=== PATIENT | female | born 1960 | race Caucasian/White ===

== ENCOUNTER 2017-03-25 07:09 | Emergency (ER) | payer MEDICARE, MEDICAID ==
[~2017-03-25] VITALS: Ht 162.6 cm; Wt 128.1 kg
[~2017-03-25 07:09] MED LIST: ASPI-1265 PO; CYCL-394 PO; DIAZ-351 PO; FURO-150 PO; HYDR-569 PO; LEVO500T89 PO; LIDO700A22 TP; NAP220T PO; NORCO10T PO; POTA10TA36 PO; PRED20TA PO; SIMV10TA2 PO; SYN0.025T PO
[2017-03-25 07:41] LABS: BASOPHILS # (AUTO) 0.1 X10'3 (0-0.2); BASOPHILS % (AUTO) 0.6 % (0-1); EOSINOPHILS # (AUTO) 0.2 X10'3 (0-0.9); EOSINOPHILS % (AUTO) 2.1 % (0-6); HEMATOCRIT 48.1 % (35.0-45.0); LYMPHOCYTES # (AUTO) 5.2 X10'3 (1.1-4.8); LYMPHOCYTES % (AUTO) 47.6 % (21-51); MEAN CORPUSCULAR HEMOGLOBIN 29.6 PG (27.0-31.0); MEAN CORPUSCULAR HGB CONC 33.3 % (33.0-36.5); MEAN CORPUSCULAR VOLUME 88.8 FL (78-98); MEAN PLATELET VOLUME 8.5 FL (7.4-10.4); MONOCYTES # (AUTO) 0.7 X10'3 (0-0.9); MONOCYTES % (AUTO) 6.2 % (2-12); NEUTROPHILS # (AUTO) 4.7 X10'3 (1.8-7.7); NEUTROPHILS % (AUTO) 43.5 % (42-75); PLATELET COUNT 298 X10'3 (140-440); RED BLOOD COUNT 5.42 X10'6 (4.20-5.60); RED CELL DISTRIBUTION WIDTH 13.4 % (11.5-14.5); WHITE BLOOD COUNT 10.9 X10'3 (4.5-11.0)
[2017-03-25] MEDS ORDERED: cyclobenzaprine 10mg tablet PO ONE (07:55)
[2017-03-25] MEDS ORDERED: ketorolac trometh. 30mg/ml inj. IV ONE (07:55)
[2017-03-25 08:02] LABS: ALANINE AMINOTRANSFERASE 41 U/L (12-78); ALBUMIN/GLOBULIN RATIO 0.9 (1.1-1.5); ALKALINE PHOSPHATASE 109 IU/L (46-116); ANION GAP 10 (8-16); ASPARTATE AMINO TRANSFERASE 20 U/L (10-37); BILIRUBIN,TOTAL 0.4 MG/DL (0.1-1.0); BLOOD UREA NITROGEN 6 MG/DL (7-18); BUN/CREATININE RATIO 6.9 (6.6-38.0); CALCIUM 9.9 MG/DL (8.5-10.1); CHLORIDE 103 MMOL/L (99-107); CREATININE 0.87 MG/DL (0.40-0.90); GLUCOSE 133 MG/DL (70-104); POTASSIUM 4.2 MMOL/L (3.5-5.1); SODIUM 141 MMOL/L (135-145); TOTAL CARBON DIOXIDE 27.9 MMOL/L (24-32); TOTAL PROTEIN 8.3 G/DL (6.4-8.2); eGFR 68 ML/MIN
[2017-03-25 08:07] LABS: PARTIAL THROMBOPLASTIN TIME 32 SECONDS (22-32); PROTHROMBIN TIME 9.9 SECONDS (9.0-12.0)
[2017-03-25 08:50] LABS: CLARITY,URINE CLEAR (Clear); COLOR,URINE YELLOW (Yellow); GLUCOSE, URINE NEGATIVE (Neg); KETONES,URINE NEGATIVE (Neg); LEUKOCYTE ESTERASE ,URINE NEGATIVE (Neg); NITRITES, URINE NEGATIVE (Neg); OCCULT BLOOD,URINE NEGATIVE (Neg); PROTEIN,URINE NEGATIVE (Neg); UROBILINOGEN,URINE 0.2 E.U/dL (0.2-1.0)
[2017-03-25 08:56] LABS: UA COLLECTION TYPE CLN CATCH MIDSTREAM
[2017-03-25 09:33] VITALS: BP 127/99
== END 2017-03-25 09:30 | disposition home or self-care (01) ==
LOC: ER 07:10
DX: S29.012A Strain of muscle and tendon of back wall of thorax, initial encounter (principal); E78.00 Pure hypercholesterolemia, unspecified; J44.9 Chronic obstructive pulmonary disease, unspecified; I10 Essential (primary) hypertension; E66.01 Morbid (severe) obesity due to excess calories; E11.9 Type 2 diabetes mellitus without complications; G89.29 Other chronic pain; Z86.73 Personal history of transient ischemic attack (TIA), and cerebral infarction without residual deficits; Z90.49 Acquired absence of other specified parts of digestive tract; Z87.891 Personal history of nicotine dependence; Z60.2 Problems related to living alone; Z68.42 Body mass index [BMI] 45.0-49.9, adult; Z88.0 Allergy status to penicillin; Z88.6 Allergy status to analgesic agent; Z79.82 Long term (current) use of aspirin; Z79.899 Other long term (current) drug therapy; W19.XXXA Unspecified fall, initial encounter; Y93.89 Activity, other specified; Y92.89 Other specified places as the place of occurrence of the external cause; Y99.8 Other external cause status
CPT/HCPCS: 36415; 71045; 71046; 80053; 81003; 84484; 85025; 85610; 85730; 93005; 96374; 96375; 99285; J1885; J2270

== ENCOUNTER 2017-07-17 14:47 | Outpatient (CLI) | payer MEDICARE, MEDICAID | END 2017-07-17 15:45 | disposition home or self-care (01) | LOC: ORTHO 14:47 | PROVIDERS: ATTEND Nurse Practitioner Family | DX: S69.91XA Unspecified injury of right wrist, hand and finger(s), initial encounter (principal); F17.210 Nicotine dependence, cigarettes, uncomplicated; E11.9 Type 2 diabetes mellitus without complications; E78.00 Pure hypercholesterolemia, unspecified; G89.29 Other chronic pain; I10 Essential (primary) hypertension; J44.9 Chronic obstructive pulmonary disease, unspecified; Z86.73 Personal history of transient ischemic attack (TIA), and cerebral infarction without residual deficits; Z88.0 Allergy status to penicillin; Z88.8 Allergy status to other drugs, medicaments and biological substances; Z56.0 Unemployment, unspecified; X58.XXXA Exposure to other specified factors, initial encounter; Y93.89 Activity, other specified; Y92.89 Other specified places as the place of occurrence of the external cause; Y99.8 Other external cause status | CPT/HCPCS: 29075; 99213; A4590 ==

== ENCOUNTER 2017-07-31 14:09 | Outpatient (CLI) | payer MEDICARE, MEDICAID ==
[2017-07-31 14:23] VITALS: BP 146/78
== END 2017-07-31 15:18 | disposition home or self-care (01) ==
LOC: ORTHO 14:09
PROVIDERS: ATTEND Nurse Practitioner Family
DX: S62.024G Nondisplaced fracture of middle third of navicular [scaphoid] bone of right wrist, subsequent encounter for fracture with delayed healing (principal); J44.9 Chronic obstructive pulmonary disease, unspecified; I10 Essential (primary) hypertension; G89.29 Other chronic pain; E78.00 Pure hypercholesterolemia, unspecified; E11.9 Type 2 diabetes mellitus without complications; F17.200 Nicotine dependence, unspecified, uncomplicated; Z88.0 Allergy status to penicillin; Z86.73 Personal history of transient ischemic attack (TIA), and cerebral infarction without residual deficits; X58.XXXD Exposure to other specified factors, subsequent encounter
CPT/HCPCS: 73110; 99213; A4590

== ENCOUNTER 2017-08-21 15:08 | Outpatient (CLI) | payer MEDICARE, MEDICAID ==
[2017-08-21 15:22] VITALS: BP 129/95
== END 2017-08-21 15:50 | disposition home or self-care (01) ==
LOC: ORTHO 15:08
PROVIDERS: ATTEND Nurse Practitioner Family
DX: S62.001D Unspecified fracture of navicular [scaphoid] bone of right wrist, subsequent encounter for fracture with routine healing (principal); I10 Essential (primary) hypertension; E11.9 Type 2 diabetes mellitus without complications; E78.00 Pure hypercholesterolemia, unspecified; F17.210 Nicotine dependence, cigarettes, uncomplicated; J44.9 Chronic obstructive pulmonary disease, unspecified; F10.10 Alcohol abuse, uncomplicated; Z86.73 Personal history of transient ischemic attack (TIA), and cerebral infarction without residual deficits; Z88.0 Allergy status to penicillin; Z88.8 Allergy status to other drugs, medicaments and biological substances; X58.XXXD Exposure to other specified factors, subsequent encounter
CPT/HCPCS: 73110; 99213

== ENCOUNTER 2017-09-17 09:31 | Outpatient (CLI) | payer MEDICARE, MEDICAID | END 2017-09-17 10:32 | disposition home or self-care (01) | LOC: ORTHO 09:31 | PROVIDERS: ATTEND Nurse Practitioner Family | DX: S69.91XD Unspecified injury of right wrist, hand and finger(s), subsequent encounter (principal); X58.XXXD Exposure to other specified factors, subsequent encounter; Z56.0 Unemployment, unspecified; Z88.0 Allergy status to penicillin; E78.00 Pure hypercholesterolemia, unspecified; I10 Essential (primary) hypertension; J44.9 Chronic obstructive pulmonary disease, unspecified; E11.9 Type 2 diabetes mellitus without complications; G89.29 Other chronic pain | CPT/HCPCS: 73110; 99213 ==

== ENCOUNTER 2017-10-15 09:29 | Outpatient (CLI) | payer MEDICARE, MEDICAID ==
[2017-10-15 09:50] VITALS: BP 150/85
== END 2017-10-15 10:08 | disposition home or self-care (01) ==
LOC: ORTHO 09:29
PROVIDERS: ATTEND Nurse Practitioner Family
DX: S69.91XD Unspecified injury of right wrist, hand and finger(s), subsequent encounter (principal); F17.200 Nicotine dependence, unspecified, uncomplicated; E78.00 Pure hypercholesterolemia, unspecified; I10 Essential (primary) hypertension; J44.9 Chronic obstructive pulmonary disease, unspecified; E11.9 Type 2 diabetes mellitus without complications; Z56.0 Unemployment, unspecified; Z72.89 Other problems related to lifestyle; Z88.0 Allergy status to penicillin; Z88.8 Allergy status to other drugs, medicaments and biological substances; X58.XXXD Exposure to other specified factors, subsequent encounter
CPT/HCPCS: 73110; 99213

== ENCOUNTER 2018-07-10 06:19 | Day surgery (SDC) | payer MEDICARE, MEDICAID ==
[2018-07-03 12:05] LABS: BASOPHILS # (AUTO) 0.1 X10'3 (0-0.2); BASOPHILS % (AUTO) 0.9 % (0-1); EOSINOPHILS # (AUTO) 0.2 X10'3 (0-0.9); LYMPHOCYTES # (AUTO) 4.5 X10'3 (1.1-4.8); LYMPHOCYTES % (AUTO) 45.4 % (21-51); MEAN CORPUSCULAR HEMOGLOBIN 29.2 PG (27.0-31.0); MEAN CORPUSCULAR HGB CONC 33.3 g/dL (33.0-36.5); MEAN CORPUSCULAR VOLUME 87.6 FL (78-98); MEAN PLATELET VOLUME 8.9 FL (7.4-10.4); MONOCYTES # (AUTO) 0.7 X10'3 (0-0.9); MONOCYTES % (AUTO) 7.1 % (2-12); NEUTROPHILS # (AUTO) 4.4 X10'3 (1.8-7.7); NEUTROPHILS % (AUTO) 44.6 % (42-75); PRE OP HEMATOCRIT 43.7 % (35.0-45.0); PRE OP HEMOGLOBIN 14.6 g/dL (12.0-16.0); PRE OP PLATELET COUNT 285 X10'3 (140-440); RED BLOOD COUNT 4.99 X10'6 (4.20-5.60); RED CELL DISTRIBUTION WIDTH 12.9 % (11.5-14.5)
[2018-07-03 12:19] LABS: ALBUMIN 3.5 G/DL (3.4-5.0); ALBUMIN/GLOBULIN RATIO 0.9 (1.1-1.5); ALKALINE PHOSPHATASE 102 IU/L (46-116); BLOOD UREA NITROGEN 10 MG/DL (7-18); CALCIUM 9.4 MG/DL (8.5-10.1); CHLORIDE 104 MMOL/L (99-107); CREATININE 0.77 MG/DL (0.40-0.90); PRE OP ALT 39 U/L (30-65); PRE OP ANION GAP 9 (8-16); PRE OP AST 28 U/L (10-37); PRE OP BILIRUB, TOTAL 0.2 MG/DL (0.0-1.0); PRE OP GLUCOSE 115 MG/DL (70-104); PRE OP POTASSIUM 4.1 MMOL/L (3.4-5.1); PRE OP SODIUM 139 MMOL/L (135-145); TOTAL CARBON DIOXIDE 25.7 MMOL/L (24-32); TOTAL PROTEIN 7.2 G/DL (6.4-8.2); eGFR 78 ML/MIN
[~2018-07-10] VITALS: Ht 162.6 cm; Wt 121.0 kg
[~2018-07-10 06:19] MED LIST changes: -ASPI-1265 PO; +ATOR40TA PO; +ATR0.5NEB IH; -DIAZ-351 PO; +DULO-31 PO; -FURO-150 PO; -HYDR-569 PO; -LEVO500T89 PO; -LIDO700A22 TP; +LORA10TA7 PO; +METF500T PO; -POTA10TA36 PO; -PRED20TA PO; -SIMV10TA2 PO; +albuterol 2.5 MG/3 ML nebule NEB ONE; +clindamycin 600mg/D5W 50ml 50 ML IV ONE; +famotidine 20mg tablet PO ONE; +ringers solution, lacted 1,000 ML IV SCH
[2018-07-10] MEDS ORDERED: BUPIVAcaine/PF 2.5mg/ml (0.25%) 10ml vial ONE (06:43)
[2018-07-10 06:45] VITALS: BP 142/81
[2018-07-10] MEDS ORDERED: LIDOcaine 0.5% (5mg/ml) 50ml vial ONE (07:30)
[2018-07-10] MEDS ORDERED: ringers solution, lacted 1,000 ML IV SCH (07:58)
[2018-07-10] MEDS ORDERED: meperidine/PF 25mg/ml syringe IV PRN ×3 (08:00)
[2018-07-10] MEDS ORDERED: morphine 4 MG/ML inj SYRINge IV PRN ×2 (08:00)
[2018-07-10] MEDS ORDERED: ondansetron/PF 4mg/2ml inj IV PRN (08:00)
[2018-07-10] MEDS ORDERED: proCHLORperazine 10 MG/2 ml inj IV PRN (08:00)
[2018-07-10] MEDS ORDERED: fentaNYL/PF 50MCG/1 ML 2ML syringe ONE (08:43)
[2018-07-10] MEDS ORDERED: MIDAZolam 5mg/5ml vial ONE (08:43)
[2018-07-10 09:14] VITALS: BP 124/80
--- NOTE | 2018-07-10 09:14 | NUR ---
Received from OR via , accompanied by Anesthesiologist JAMEL and report given by Anesthesiolgist. AWAKE IN NO RESP DISTRESS SKIN WARM AND DRY LEFT HAND PINK GOOD CAP REFILL, NON CO PAIN, DSG DI, ICE TO WRIST.
[2018-07-10 09:24] VITALS: BP 128/79
[2018-07-10 09:34] VITALS: BP 122/75
[2018-07-10 09:44] VITALS: BP 128/82
--- NOTE | 2018-07-10 09:54 | NUR ---
AWAKE VS WNL, DSG DI, NO CO PAIN, FINGERS LEFT HAND WITH MOVEMENT WARM PINK GOOD CAP REFILL, TOLERATES LIQUIDS DISCH INSTR GIVEN TO PT AND HUBAND AND UNDERSTOOD. HAS NORCO AT HOME FOR PAIN,. ICE TO WRIST AND THUMB AREA. HOME
== END 2018-07-10 09:54 | disposition home or self-care (01) ==
LOC: PAS 06:19
PROVIDERS: ATTEND Orthopaedic Surgery Hand Surgery
DX: M65.4 Radial styloid tenosynovitis [de Quervain] (principal)
CPT/HCPCS: 25000; 36415; 80053; 82948; 85025; 93005; A6222; A6449; J2001; J2250; J3010; J3490; J7120

== ENCOUNTER 2019-02-03 16:26 | Emergency (ER) | payer MEDICARE, MEDICAID ==
[~2019-02-03] VITALS: Ht 162.6 cm; Wt 127.3 kg
[~2019-02-03 16:26] MED LIST changes: +ASPI-1265 PO; -ATOR40TA PO; +LEVO137T2 PO; +NICO-631 TD; -SYN0.025T PO; -albuterol 2.5 MG/3 ML nebule NEB ONE; -clindamycin 600mg/D5W 50ml 50 ML IV ONE; -famotidine 20mg tablet PO ONE; -ringers solution, lacted 1,000 ML IV SCH
[2019-02-03 16:47] VITALS: BP 164/87
[2019-02-03] MEDS ORDERED: HYDROcodone/acetaminophen 10/325mg tab PO ONE (18:25)
[2019-02-03] MEDS ORDERED: ondansetron 4mg rapidly disintigrating tab PO ONE (18:25)
--- NOTE | 2019-02-03 18:38 | NUR ---
pt does not want to take [place] for pain- she states she has taken norco 10 along with flexeril and states it is not effective.
[2019-02-03] MEDS ORDERED: morphine 4 MG/ML inj SYRINge IM ONE (18:45)
== END 2019-02-03 19:20 | disposition home or self-care (01) ==
LOC: ER 16:27
DX: M25.552 Pain in left hip (principal); E66.01 Morbid (severe) obesity due to excess calories; E78.00 Pure hypercholesterolemia, unspecified; I10 Essential (primary) hypertension; J44.9 Chronic obstructive pulmonary disease, unspecified; E11.9 Type 2 diabetes mellitus without complications; G89.29 Other chronic pain; F17.200 Nicotine dependence, unspecified, uncomplicated; Z90.49 Acquired absence of other specified parts of digestive tract; Z88.0 Allergy status to penicillin; Z88.8 Allergy status to other drugs, medicaments and biological substances; Z79.899 Other long term (current) drug therapy; W18.30XA Fall on same level, unspecified, initial encounter; Y93.89 Activity, other specified; Y92.89 Other specified places as the place of occurrence of the external cause; Y99.9 Unspecified external cause status
CPT/HCPCS: 73502; 96372; 99284; J2270

== ENCOUNTER 2019-05-26 21:10 | Inpatient (IN) | payer MEDICARE, MEDICAID ==
[~2019-05-26] VITALS: Ht 162.6 cm; Wt 127.3 kg
[2019-05-26] MEDS ORDERED: ipratropium/albuterol 3ml nebule NEB ONE (21:20)
[2019-05-26] MEDS ORDERED: normal saline 1000ML IV soln IVB ONE (21:20)
[2019-05-26] MEDS ORDERED: methylPREDNISolone sod succ 125mg/2ml vial IV ONE (21:20)
[2019-05-26] MEDS ORDERED: LORazepam 2 mg/ml vial IV ONE (21:20)
[2019-05-26] MEDS ORDERED: albuterol 2.5 MG/3 ML nebule CONTNEB PRN (21:20)
[2019-05-26 21:37] LABS: BASOPHILS # (AUTO) 0.2 X10'3 (0-0.2); BASOPHILS % (AUTO) 1.1 % (0-1); EOSINOPHILS # (AUTO) 0.3 X10'3 (0-0.9); HEMOGLOBIN 14.2 g/dl (12.0-16.0); MEAN PLATELET VOLUME 8.8 FL (7.4-10.4); NEUTROPHILS # (AUTO) 7.4 X10'3 (1.8-7.7); RED CELL DISTRIBUTION WIDTH 13.3 % (11.5-14.5); WHITE BLOOD COUNT 17.2 X10'3 (4.5-11.0)
[2019-05-26 21:39] LABS: EOSINOPHILS % (AUTO) 1.6 % (0-6); HEMATOCRIT 41.3 % (35.0-45.0); LYMPHOCYTES # (AUTO) 8.2 X10'3 (1.1-4.8); LYMPHOCYTES % (AUTO) 47.8 % (21-51); MEAN CORPUSCULAR HEMOGLOBIN 30.1 PG (27.0-31.0); MEAN CORPUSCULAR HGB CONC 34.3 g/dL (33.0-36.5); MEAN CORPUSCULAR VOLUME 87.8 FL (78-98); MONOCYTES # (AUTO) 1.1 X10'3 (0-0.9); MONOCYTES % (AUTO) 6.3 % (2-12); NEUTROPHILS % (AUTO) 43.2 % (42-75); PLATELET COUNT 309 X10'3 (140-440); RED BLOOD COUNT 4.71 X10'6 (4.20-5.60)
[2019-05-26 21:49] LABS: PARTIAL THROMBOPLASTIN TIME 32 SECONDS (22-32)
[2019-05-26 21:51] LABS: ALANINE AMINOTRANSFERASE 48 U/L (12-78); ALBUMIN 3.6 G/DL (3.4-5.0); ALBUMIN/GLOBULIN RATIO 0.9 (1.1-1.5); ALKALINE PHOSPHATASE 92 IU/L (46-116); ANION GAP 9 (8-16); ASPARTATE AMINO TRANSFERASE 25 U/L (10-37); BILIRUBIN,TOTAL 0.2 MG/DL (0.1-1.0); BLOOD UREA NITROGEN 11 MG/DL (7-18); BUN/CREATININE RATIO 10.9 (6.6-38.0); CALCIUM 9.2 MG/DL (8.5-10.1); CHLORIDE 104 MMOL/L (99-107); CREATININE 1.01 MG/DL (0.40-0.90); GLUCOSE 156 MG/DL (70-104); POTASSIUM 3.8 MMOL/L (3.5-5.1); SODIUM 139 MMOL/L (135-145); TOTAL CARBON DIOXIDE 25.6 MMOL/L (24-32); TOTAL PROTEIN 7.6 G/DL (6.4-8.2); eGFR 56 ML/MIN
[2019-05-26 22:03] LABS: PLATELET ESTIMATE NORMAL; TOTAL CELLS COUNTED 100
--- NOTE | 2019-05-26 22:53 | NUR ---
RR 24 AND SATS ON 1 LITER NC 95%. 1 HR SVN JUST FINISHED AND PT REPORTS IMPROVEMENT. HR 118 , OTHERWISE VSS. PT IS POLITE AND COOPERATIVE.
[2019-05-26] MEDS ORDERED: ATOR20TA66 PO (23:01)
[2019-05-26] MEDS ORDERED: azithromycin/NS 500mg/250ml 250 ML IV ONE (23:45)
[2019-05-27] MEDS ORDERED: magnesium 4gm in 100ml NS 100 ML IV PRN
[2019-05-27] MEDS ORDERED: potassium Cl 20 mEq SR tablet PO PRN ×2
[2019-05-27] MEDS ORDERED: mag hydrox/Alum hydrox/simeth 30ml oral suspension PO PRN
[2019-05-27] MEDS ORDERED: potassium CL 10mEq/100ml bag 100 ML IV PRN ×2
[2019-05-27] MEDS ORDERED: ondansetron/PF 4mg/2ml inj IV PRN
[2019-05-27] MEDS ORDERED: magnesium hydroxide 30ml (MOM) UD suspension PO PRN
[2019-05-27] MEDS ORDERED: acetaminophen 325mg tablet PO PRN
[2019-05-27] MEDS ORDERED: magnesium 2GM in 50ml NS 50 ML IV PRN
[2019-05-27] MEDS ORDERED: magnesium Cl slow-release 64mg tablet PO PRN
[2019-05-27] MEDS ORDERED: bisacodyl 10mg suppository rectal RC PRN
[2019-05-27] MEDS ORDERED: HYDROcodone/acetaminophen 5mg/325mg tablet PO PRN
[2019-05-27] MEDS ORDERED: ipratropium/albuterol 3ml nebule NEB PRN (00:15)
--- NOTE | 2019-05-27 00:17 | NUR ---
dr young at bedside for admission. Pt awaiting ipa.
[2019-05-27] MEDS ORDERED: diphenhydrAMINE 50 mg/ml inj IV ONE (00:20)
--- NOTE | 2019-05-27 00:42 | NUR ---
Pt abs to ambluate to BR. Pt with increasing sob while ambulating. Placed in WC to return to room.
[2019-05-27] MEDS: K and/or MAG REPLACEMENT MC SCH ×2 (01:31→19:58)
[2019-05-27 01:56] VITALS: BP 158/86
--- NOTE | 2019-05-27 03:53 | NUR ---
Arrived to Ortho/Neuro @0155 on [facility]. Patient is able to ambulate OOB but is SOB on exertion. A&Ox4. Vital signs: RR24 on 97% 1L NC. BP 153/68, HR 120, Temperature 97.8F Patient was oriented to the room and educated on MRSA swab. Questions were answered and encouraged. Will continue to monitor.
[2019-05-27 06:00] VITALS: BP 120/63
--- NOTE | 2019-05-27 06:10 | NUR ---
Problems reprioritized. Patient report given, questions answered & plan of care reviewed with MAXI Rodriguez.
--- NOTE | 2019-05-27 06:25 | NUR ---
Patient in room ORTHO 4010. I have received report from SHANEL GERMAN and had the opportunity to ask questions and assume patient care.
--- NOTE | 2019-05-27 07:09 | NUR ---
PAGER ID: [phone] MESSAGE: AZEEM [phone] RE: FAVIOLA [id number] MED REC NEED ADDRESSED WHEN YOU HAVE TIME PLEASE.
[2019-05-27] MEDS: docusate sod 100mg capsule PO SCH ×2 (07:30→20:00)
[2019-05-27] MEDS: enoxaparin 40mg/0.4ml syringe SQ SCH (07:31)
[2019-05-27] MEDS ORDERED: predniSONE 20 mg tablet PO SCH (08:00)
[2019-05-27] MEDS ORDERED: ASPI-1130 PO (08:40)
[2019-05-27] MEDS ORDERED: LORA-660 PO (08:41)
[2019-05-27] MEDS ORDERED: pneumococcal 23-VAL P-sac vacc 25 mcg/0.5ml vial IMVAC ONE (10:00)
[2019-05-27] MEDS ORDERED: FLU VACC QS2019-20 36MOS UP/PF 60 MCG/0.5 ML SYRINGE IMVAC ONE (10:00)
[2019-05-27 10:04] VITALS: BP 142/75
[2019-05-27] MEDS ORDERED: propranolol 10mg tablet PO ONE (10:10)
[2019-05-27] MEDS ORDERED: cyclobenzaprine 10mg tablet PO PRN (10:10)
[2019-05-27] MEDS ORDERED: loratadine 10mg tablet PO PRN (10:17)
[2019-05-27] MEDS: levoFLOXACIN-Levaquin 750MG/D5 150 ML IV SCH (10:59)
[2019-05-27] MEDS: ipratropium/albuterol 3ml nebule NEB SCH ×4 (11:02→23:18)
[2019-05-27] MEDS: levoTHYROXINE 112mcg tablet PO SCH (11:02)
[2019-05-27] MEDS: levoTHYROXINE 25mcg tablet PO SCH (11:02)
[2019-05-27] MEDS ORDERED: insulin Lispro (HumaLOG) vial - multi-dose SQ SCH (12:05)
[2019-05-27] MEDS ORDERED: dextrose 50%-water 50ml dispensing syringe IV PRN ×2 (12:05)
[2019-05-27] MEDS ORDERED: glucagon, human recombinant 1mg kit SUBCUT PRN (12:05)
[2019-05-27] MEDS ORDERED: dextrose ORAL solution 15 GM/59 ML bottle PO PRN ×2 (12:05)
[2019-05-27] MEDS: methylPREDNISolone sod succ 125mg/2ml vial IV SCH ×2 (14:02→20:07)
--- NOTE | 2019-05-27 14:33 | NUR ---
DM Consult: A1C 7.2. Pt seen by DARLYN for written/verbal DM ed w/ RD contact information provided. Addendum: 05/27/19 at [address] Amended: Links added.
--- NOTE | 2019-05-27 17:31 | NUR ---
Student documentation: I have reviewed and agree with all interventions, assessments performed and documented by ALLISON SCHNEIDER. Student Medication Administration: For this medication-pass time frame, all medication were reviewed, dispensed, administered and documented per hospital policy by ALLISON SCHNEIDER.
[2019-05-27 18:00] VITALS: BP 134/80
--- NOTE | 2019-05-27 18:14 | NUR ---
Problems reprioritized. Patient report given, questions answered & plan of care reviewed with NAT GERMAN.
[2019-05-27] MEDS: metFORMIN 500mg tablet PO SCH (20:06)
[2019-05-27] MEDS: duloxetine 30mg CAPSULE.DR PO SCH (20:06)
[2019-05-27] MEDS: propranolol 10mg tablet PO SCH (20:06)
[2019-05-27] MEDS ORDERED: atorvastatin 20mg tablet PO SCH (21:00)
[2019-05-27] MEDS ORDERED: insulin glargine (Lantus) pen - multi-dose SQ SCH (21:00)
[2019-05-27 22:00] VITALS: BP 132/68
[2019-05-28] MEDS: methylPREDNISolone sod succ 125mg/2ml vial IV SCH ×3 (02:30→08:23)
[2019-05-28] MEDS: ipratropium/albuterol 3ml nebule NEB SCH ×3 (02:54→11:00)
[2019-05-28 06:00] VITALS: BP 160/82
--- NOTE | 2019-05-28 06:29 | NUR ---
reported to days. noted pt anticipates discharge this am.
--- NOTE | 2019-05-28 06:45 | NUR ---
Patient in room ORTHO 4010. I have received report from NAT GERMAN and had the opportunity to ask questions and assume patient care.
[2019-05-28 06:50] LABS: BASOPHILS % (AUTO) 0.2 % (0-1); EOSINOPHILS % (AUTO) 0 % (0-6); HEMATOCRIT 40.9 % (35.0-45.0); HEMOGLOBIN 13.7 g/dl (12.0-16.0); LYMPHOCYTES # (AUTO) 2.5 X10'3 (1.1-4.8); LYMPHOCYTES % (AUTO) 16.6 % (21-51); MEAN CORPUSCULAR HEMOGLOBIN 29.6 PG (27.0-31.0); MEAN CORPUSCULAR HGB CONC 33.6 g/dL (33.0-36.5); MEAN CORPUSCULAR VOLUME 88.3 FL (78-98); MEAN PLATELET VOLUME 8.8 FL (7.4-10.4); MONOCYTES # (AUTO) 0.4 X10'3 (0-0.9); MONOCYTES % (AUTO) 2.8 % (2-12); NEUTROPHILS # (AUTO) 12.2 X10'3 (1.8-7.7); NEUTROPHILS % (AUTO) 80.4 % (42-75); PLATELET COUNT 316 X10'3 (140-440); RED BLOOD COUNT 4.63 X10'6 (4.20-5.60); RED CELL DISTRIBUTION WIDTH 13.4 % (11.5-14.5); WHITE BLOOD COUNT 15.1 X10'3 (4.5-11.0)
[2019-05-28 07:10] LABS: ALANINE AMINOTRANSFERASE 39 U/L (12-78); ALBUMIN 3.4 G/DL (3.4-5.0); ALBUMIN/GLOBULIN RATIO 0.9 (1.1-1.5); ALKALINE PHOSPHATASE 83 IU/L (46-116); ANION GAP 7 (8-16); ASPARTATE AMINO TRANSFERASE 14 U/L (10-37); BILIRUBIN,TOTAL 0.2 MG/DL (0.1-1.0); BLOOD UREA NITROGEN 13 MG/DL (7-18); BUN/CREATININE RATIO 13.4 (6.6-38.0); CALCIUM 9.1 MG/DL (8.5-10.1); CHLORIDE 103 MMOL/L (99-107); CREATININE 0.97 MG/DL (0.40-0.90); GLUCOSE 224 MG/DL (70-104); MAGNESIUM 1.7 MG/DL (1.5-2.4); PHOSPHORUS 3.6 MG/DL (2.3-4.5); POTASSIUM 4.2 MMOL/L (3.5-5.1); SODIUM 137 MMOL/L (135-145); TOTAL CARBON DIOXIDE 26.8 MMOL/L (24-32); TOTAL PROTEIN 7.4 G/DL (6.4-8.2); eGFR 59 ML/MIN
[2019-05-28] MEDS: docusate sod 100mg capsule PO SCH (08:00)
[2019-05-28] MEDS ORDERED: aspirin 81mg tablet.DR PO SCH (08:00)
[2019-05-28] MEDS: levoFLOXACIN-Levaquin 750MG/D5 150 ML IV SCH ×2 (08:00→08:22)
[2019-05-28] MEDS: K and/or MAG REPLACEMENT MC SCH (08:00)
[2019-05-28] MEDS: levoTHYROXINE 112mcg tablet PO SCH (08:22)
[2019-05-28] MEDS: levoTHYROXINE 25mcg tablet PO SCH (08:22)
[2019-05-28] MEDS: metFORMIN 500mg tablet PO SCH (08:23)
[2019-05-28] MEDS: duloxetine 30mg CAPSULE.DR PO SCH (08:23)
[2019-05-28] MEDS: propranolol 10mg tablet PO SCH (08:24)
[2019-05-28] MEDS: enoxaparin 40mg/0.4ml syringe SQ SCH (08:24)
[2019-05-28 10:00] VITALS: BP 138/91
[2019-05-28] MEDS ORDERED: FURO-150 PO (10:06)
--- NOTE | 2019-05-31 10:35 | NUR ---
case management DC follow up: spoke w/pt via telephone: doing fine. Saw PCP this morning 05/31/2019, has follow up w/specialist 07/05/2019. Will call PCP back to inquire about portable O2 when going out. has concentrator at home, no Rx for O2 at this time. pt verbalizes will follow up if need to. verbalizes understanding of meds/why prescribed, no ase r/t polypharmacy. Denies cp, general acute pain, SOB at rest, resp distress, NV, dizziness. understands s/s what would warrant 9-/ER visit for evaluation. needs met, questions answered at DC. No further questions at this time.
== END 2019-05-28 11:31 | disposition home or self-care (01) | DRG 189 ==
LOC: ER 21:14 → ED HOLD 05-27 → EDBEDREQ 05-27 01:04 → ORTHO 4S 05-27 01:55 → CMPBEDREQ 05-27 02:57
PROVIDERS: ADMIT Family Medicine; ATTEND Family Medicine
DX: J96.00 Acute respiratory failure, unspecified whether with hypoxia or hypercapnia (principal); J44.1 Chronic obstructive pulmonary disease with (acute) exacerbation; Z68.42 Body mass index [BMI] 45.0-49.9, adult; F17.210 Nicotine dependence, cigarettes, uncomplicated; I27.81 Cor pulmonale (chronic); E78.5 Hyperlipidemia, unspecified; E66.01 Morbid (severe) obesity due to excess calories; E11.9 Type 2 diabetes mellitus without complications; E03.9 Hypothyroidism, unspecified; G89.29 Other chronic pain
CPT/HCPCS: 36415; 71045; 80053; 82948; 83036; 83735; 83880; 84100; 84145; 84484; 85025; 85610; 85730; 87081; 93005; 94640; 94668; 94760; 96374; 96375; 97116; 97162; 97530; 99285; G0378; J0456; J1200; J1650; J1815; J1956; J2060; J2930; J7030; J7512; Q2037

== ENCOUNTER 2019-10-30 11:01 | Emergency (ER) | payer MEDICARE, MEDICAID ==
[~2019-10-30] VITALS: Ht 162.6 cm; Wt 118.2 kg
[~2019-10-30 11:01] MED LIST changes: -ASPI-1265 PO; +ASPI-1397 PO; +ATOR20TA66 PO; -ATR0.5NEB IH; +FURO-150 PO; +LORA-660 PO; -LORA10TA7 PO; -NAP220T PO; -NICO-631 TD
[2019-10-30 11:21] VITALS: BP 151/95
== END 2019-10-30 12:24 | disposition home or self-care (01) ==
LOC: ER 11:02
DX: S93.401A Sprain of unspecified ligament of right ankle, initial encounter (principal); M79.671 Pain in right foot; E78.00 Pure hypercholesterolemia, unspecified; I10 Essential (primary) hypertension; J44.9 Chronic obstructive pulmonary disease, unspecified; E11.9 Type 2 diabetes mellitus without complications; G89.29 Other chronic pain; Z86.73 Personal history of transient ischemic attack (TIA), and cerebral infarction without residual deficits; Z90.49 Acquired absence of other specified parts of digestive tract; Z88.0 Allergy status to penicillin; Z88.8 Allergy status to other drugs, medicaments and biological substances; Z79.82 Long term (current) use of aspirin; Z79.899 Other long term (current) drug therapy; W16.92XA Jumping or diving into unspecified water causing other injury, initial encounter; Y93.89 Activity, other specified; Y92.89 Other specified places as the place of occurrence of the external cause; Y99.8 Other external cause status
CPT/HCPCS: 73610; 73630; 99284

== ENCOUNTER 2020-05-25 13:59 | Emergency (ER) | payer MEDICARE, MEDICAID ==
[~2020-05-25] VITALS: Ht 162.6 cm; Wt 125.9 kg
[~2020-05-25 13:59] MED LIST changes: +LORA-657 PO; -LORA-660 PO
--- NOTE | 2020-05-25 15:25 | NUR ---
PATIENT IS ON ELIQUIS: STARTED 2 WEEKS AGO DUE TO AFIB: GETTING WORK UP TO HAVE RIGHT KNEE REPLACED. PATIENT FELL 3 DAYS AGO INTO WALKER: C/O OF LEFT LOWER BACK INTO BUTTOCK PAST KNEE PAIN "FEELS LIKE STABBING BUTT IN MIDDLE" PAIN INCREASES WITH ADDUCTION OR ABDUCTION OF LEFT LEG PATIENT DOES NOT HAVE ANY BRUISES OR DEFORMITIES NOTED TO BACK, BUTTOCKS OR LOWER LEGS LEGS DO APPEAR MOTTLED
[2020-05-25] MEDS ORDERED: ondansetron 4mg rapidly disintigrating tab PO ONE (15:45)
[2020-05-25] MEDS ORDERED: HYDROcodone/acetaminophen 5mg/325mg tablet PO ONE (15:45)
[2020-05-25 16:35] LABS: BASOPHILS # (AUTO) 0.1 X10'3 (0-0.2); BASOPHILS % (AUTO) 0.6 % (0-1); EOSINOPHILS # (AUTO) 0.2 X10'3 (0-0.9); EOSINOPHILS % (AUTO) 1.7 % (0-6); HEMATOCRIT 44.4 % (35.0-45.0); HEMOGLOBIN 14.8 g/dl (12.0-16.0); LYMPHOCYTES # (AUTO) 5.9 X10'3 (1.1-4.8); LYMPHOCYTES % (AUTO) 46.3 % (21-51); MEAN CORPUSCULAR HEMOGLOBIN 28.7 PG (27.0-31.0); MEAN CORPUSCULAR HGB CONC 33.4 g/dL (33.0-36.5); MEAN CORPUSCULAR VOLUME 85.9 FL (78-98); MEAN PLATELET VOLUME 8.4 FL (7.4-10.4); MONOCYTES # (AUTO) 1.2 X10'3 (0-0.9); MONOCYTES % (AUTO) 9.4 % (2-12); NEUTROPHILS # (AUTO) 5.4 X10'3 (1.8-7.7); PLATELET COUNT 286 X10'3 (140-440); RED BLOOD COUNT 5.17 X10'6 (4.20-5.60); RED CELL DISTRIBUTION WIDTH 13.1 % (11.5-14.5); WHITE BLOOD COUNT 12.8 X10'3 (4.5-11.0)
[2020-05-25 16:48] LABS: ALANINE AMINOTRANSFERASE 37 U/L (12-78); ALBUMIN 3.5 G/DL (3.4-5.0); ALBUMIN/GLOBULIN RATIO 0.9 (1.1-1.5); ALKALINE PHOSPHATASE 93 IU/L (46-116); ANION GAP 11 (8-16); ASPARTATE AMINO TRANSFERASE 20 U/L (10-37); BILIRUBIN,TOTAL 0.4 MG/DL (0.1-1.0); BLOOD UREA NITROGEN 10 MG/DL (7-18); BUN/CREATININE RATIO 14.1 (6.6-38.0); CALCIUM 9.1 MG/DL (8.5-10.1); CHLORIDE 101 MMOL/L (99-107); CREATININE 0.71 MG/DL (0.40-0.90); GLUCOSE 146 MG/DL (70-104); SODIUM 136 MMOL/L (135-145); TOTAL CARBON DIOXIDE 23.8 MMOL/L (24-32); TOTAL PROTEIN 7.6 G/DL (6.4-8.2); eGFR 85 ML/MIN
[2020-05-25] MEDS ORDERED: iohexol 300mg/ml 100ml inj. ONE (16:51)
--- NOTE | 2020-05-25 16:55 | NUR ---
to ct scan via wc
[2020-05-25] MEDS ORDERED: MESSAGE TO NURSING PO SCH (17:00)
[2020-05-25] MEDS ORDERED: CYCL-1 PO (17:24)
[2020-05-25] MEDS ORDERED: ONDA4TAB6 PO (17:36)
[2020-05-25] MEDS ORDERED: HYDR-3965 PO (17:36)
[2020-05-25] MEDS ORDERED: morphine 4 MG/ML inj SYRINge IV ONE (17:55)
[2020-05-25] MEDS ORDERED: ondansetron/PF 4mg/2ml inj IV ONE (17:55)
[2020-05-25 18:11] VITALS: BP 111/78
--- NOTE | 2020-05-25 18:14 | NUR ---
PER PATTIE LYONS, WE DO NOT HAVE A TLSO BRACE LARGE ENOUGH TO FIT PATIENT
== END 2020-05-25 18:13 | disposition home or self-care (01) ==
LOC: ER 14:02
DX: S32.030A Wedge compression fracture of third lumbar vertebra, initial encounter for closed fracture (principal); S82.832A Other fracture of upper and lower end of left fibula, initial encounter for closed fracture; M54.42 Lumbago with sciatica, left side; M25.552 Pain in left hip; M25.572 Pain in left ankle and joints of left foot; E78.00 Pure hypercholesterolemia, unspecified; I10 Essential (primary) hypertension; J44.9 Chronic obstructive pulmonary disease, unspecified; E11.9 Type 2 diabetes mellitus without complications; G89.29 Other chronic pain; Z86.73 Personal history of transient ischemic attack (TIA), and cerebral infarction without residual deficits; Z90.49 Acquired absence of other specified parts of digestive tract; Z88.0 Allergy status to penicillin; Z88.8 Allergy status to other drugs, medicaments and biological substances; Z79.82 Long term (current) use of aspirin; Z79.899 Other long term (current) drug therapy; W18.39XA Other fall on same level, initial encounter; Y93.89 Activity, other specified; Y92.89 Other specified places as the place of occurrence of the external cause; Y99.8 Other external cause status
CPT/HCPCS: 36415; 72131; 73610; 74177; 80053; 85025; 96374; 96375; 99285; J2270; J2405; Q9967; 99283

== ENCOUNTER 2020-06-29 05:53 | Day surgery (SDC) | payer MEDICARE, MEDICAID ==
[2020-06-28 12:15] LABS: BASOPHILS # (AUTO) 0.1 X10'3 (0-0.2); BASOPHILS % (AUTO) 1.2 % (0-1); EOSINOPHILS # (AUTO) 0.3 X10'3 (0-0.9); EOSINOPHILS % (AUTO) 2.4 % (0-6); HEMATOCRIT 43.6 % (35.0-45.0); HEMOGLOBIN 14.3 g/dl (12.0-16.0); LYMPHOCYTES # (AUTO) 4.3 X10'3 (1.1-4.8); MEAN CORPUSCULAR HEMOGLOBIN 29.2 PG (27.0-31.0); MEAN CORPUSCULAR HGB CONC 32.9 g/dL (33.0-36.5); MEAN CORPUSCULAR VOLUME 88.7 FL (78-98); MEAN PLATELET VOLUME 8.7 FL (7.4-10.4); MONOCYTES # (AUTO) 0.8 X10'3 (0-0.9); MONOCYTES % (AUTO) 7.3 % (2-12); NEUTROPHILS # (AUTO) 5.8 X10'3 (1.8-7.7); NEUTROPHILS % (AUTO) 51.1 % (42-75); PLATELET COUNT 296 X10'3 (140-440); RED BLOOD COUNT 4.92 X10'6 (4.20-5.60); RED CELL DISTRIBUTION WIDTH 13.4 % (11.5-14.5); WHITE BLOOD COUNT 11.4 X10'3 (4.5-11.0)
[2020-06-28 12:32] LABS: ALBUMIN 3.5 G/DL (3.4-5.0); ANION GAP 12 (8-16); BLOOD UREA NITROGEN 13 MG/DL (7-18); BUN/CREATININE RATIO 14.1 (6.6-38.0); CALCIUM 9.1 MG/DL (8.5-10.1); CHLORIDE 105 MMOL/L (99-107); CREATININE 0.92 MG/DL (0.40-0.90); GLUCOSE 184 MG/DL (70-104); POTASSIUM 4.2 MMOL/L (3.5-5.1); SODIUM 141 MMOL/L (135-145); TOTAL CARBON DIOXIDE 24.3 MMOL/L (24-32); eGFR 63 ML/MIN
[2020-06-28 12:33] LABS: PARTIAL THROMBOPLASTIN TIME 30 SECONDS (22-32)
[~2020-06-29] VITALS: Ht 162.6 cm; Wt 130.2 kg
[2020-06-29] VITALS (12 sets, daily range): BP systolic 118–156; BP diastolic 64–88
[~2020-06-29 05:53] MED LIST changes: +CYCL-1 PO; +ONDA4TAB6 PO
[2020-06-29] MEDS ORDERED: normal saline 1,000 ML IV SCH (06:20)
[2020-06-29] MEDS ORDERED: LORazepam 0.5 MG tablet PO PRN (06:20)
[2020-06-29] MEDS ORDERED: diphenhydrAMINE 25mg capsule PO PRN (06:20)
[2020-06-29] MEDS ORDERED: GLYB5TAB7 PO (07:42)
[2020-06-29] MEDS ORDERED: DULO-31 PO (07:43)
[2020-06-29] MEDS ORDERED: verapamil 2.5 mg/ml inj IV ONE (07:45)
[2020-06-29] MEDS ORDERED: ATRNS NS (07:45)
[2020-06-29] MEDS ORDERED: iohexol 350 MG/ML 50ML vial IV ONE ×2 (07:46→09:42)
[2020-06-29] MEDS ORDERED: iohexol 350MG/ML 100ml bottle IV ONE ×2 (07:46→09:10)
[2020-06-29] MEDS ORDERED: LIDOcaine 1% (10mg/ml)w/preservative injection 20ml MDV ONE (07:46)
[2020-06-29] MEDS ORDERED: fentaNYL/PF 50MCG/1 ML 2ML syringe ONE (07:46)
[2020-06-29] MEDS ORDERED: nitroGLYCERIN-Tridil 50MG/D5W 250 ML IV ONE (07:46)
[2020-06-29] MEDS ORDERED: midazolam 1 mg/ML 2ml injection ONE (07:46)
[2020-06-29] MEDS ORDERED: LEVO137T2 PO (07:47)
[2020-06-29] MEDS ORDERED: heparin 1,000unit/ml 10ml vial 10 ML ONE (07:47)
[2020-06-29] MEDS ORDERED: OMEP40CA13 PO (07:49)
[2020-06-29] MEDS ORDERED: CYCL-394 PO (07:50)
[2020-06-29] MEDS ORDERED: DAPA10TA PO (07:51)
[2020-06-29] MEDS ORDERED: METF500T PO (07:52)
[2020-06-29] MEDS ORDERED: APIX5TAB3 PO (08:32)
[2020-06-29] MEDS ORDERED: heparin 25,000 UNIT/250ml bag 250 ML IV ONE (09:19)
[2020-06-29] MEDS ORDERED: clopidogrel 300mg tablet ONE (09:50)
[2020-06-29] MEDS ORDERED: HYDROcodone/acetaminophen 5mg/325mg tablet PO PRN (10:30)
[2020-06-29] MEDS ORDERED: HYDROcodone/acetaminophen 10/325mg tab PO PRN (10:30)
[2020-06-29] MEDS ORDERED: normal saline 1000ml 1,000 ML IV SCH (10:30)
[2020-06-29] MEDS ORDERED: pneumococcal 23-VAL P-sac vacc 25 mcg/0.5ml vial IMVAC ONE (15:20)
== END 2020-06-29 17:00 | disposition home or self-care (01) ==
LOC: SSTAY O 05:53
PROVIDERS: ATTEND Internal Medicine Cardiovascular Disease
DX: R94.39 Abnormal result of other cardiovascular function study (principal); R06.02 Shortness of breath; I25.10 Atherosclerotic heart disease of native coronary artery without angina pectoris; E11.9 Type 2 diabetes mellitus without complications; E03.9 Hypothyroidism, unspecified; I10 Essential (primary) hypertension; E78.5 Hyperlipidemia, unspecified; I48.0 Paroxysmal atrial fibrillation; J44.9 Chronic obstructive pulmonary disease, unspecified; M17.0 Bilateral primary osteoarthritis of knee; E78.49 Other hyperlipidemia; E66.01 Morbid (severe) obesity due to excess calories; Z68.42 Body mass index [BMI] 45.0-49.9, adult; Z86.73 Personal history of transient ischemic attack (TIA), and cerebral infarction without residual deficits; Z79.82 Long term (current) use of aspirin; Z79.899 Other long term (current) drug therapy; Z79.84 Long term (current) use of oral hypoglycemic drugs; Z90.49 Acquired absence of other specified parts of digestive tract; Z98.890 Other specified postprocedural states; Z90.710 Acquired absence of both cervix and uterus; F17.210 Nicotine dependence, cigarettes, uncomplicated; Z88.0 Allergy status to penicillin; Z88.8 Allergy status to other drugs, medicaments and biological substances
CPT/HCPCS: 36415; 76937; 80048; 82948; 85025; 85347; 85610; 85730; 93005; 93458; 99152; 99153; C1725; C1751; C1769; C1874; C1894; C9600; J1644; J2001; J2250; J3010; J7030; Q0163; Q9967; A4620; A5120; A6258; J3490

== ENCOUNTER 2020-07-08 07:07 | Emergency (ER) | payer MEDICARE, MEDICAID ==
[~2020-07-08] VITALS: Ht 162.6 cm; Wt 127.3 kg
[~2020-07-08 07:07] MED LIST changes: +APIX5TAB3 PO; +ATRNS NS; -CYCL-1 PO; +DAPA10TA PO; -FURO-150 PO; +GLYB5TAB7 PO; +OMEP40CA13 PO; -ONDA4TAB6 PO
[2020-07-08] MEDS ORDERED: HYDROcodone/acetaminophen 10/325mg tab PO ONE (07:30)
[2020-07-08] MEDS ORDERED: ketorolac trometh. 30mg/ml inj. IM ONE (07:35)
[2020-07-08] MEDS ORDERED: morphine 4 MG/ML inj SYRINge IM ONE (07:55)
[2020-07-08 08:36] VITALS: BP 143/90
== END 2020-07-08 10:10 | disposition home or self-care (01) ==
LOC: ER 07:08
DX: S29.9XXA Unspecified injury of thorax, initial encounter (principal); M54.5 Low back pain; G89.29 Other chronic pain; E78.00 Pure hypercholesterolemia, unspecified; I10 Essential (primary) hypertension; J44.9 Chronic obstructive pulmonary disease, unspecified; E11.9 Type 2 diabetes mellitus without complications; Z90.49 Acquired absence of other specified parts of digestive tract; Z86.73 Personal history of transient ischemic attack (TIA), and cerebral infarction without residual deficits; Z88.0 Allergy status to penicillin; Z88.8 Allergy status to other drugs, medicaments and biological substances; Z79.01 Long term (current) use of anticoagulants; Z79.82 Long term (current) use of aspirin; Z79.899 Other long term (current) drug therapy; X58.XXXA Exposure to other specified factors, initial encounter; Y93.89 Activity, other specified; Y92.89 Other specified places as the place of occurrence of the external cause; Y99.8 Other external cause status
CPT/HCPCS: 71045; 71100; 72100; 96372; 99284; J2270

== ENCOUNTER 2021-07-24 13:37 | Emergency (ER) | payer MEDICARE, MEDICAID ==
[~2021-07-24] VITALS: Ht 162.6 cm; Wt 128.6 kg
[~2021-07-24 13:37] MED LIST changes: -OMEP40CA13 PO; +OMEP40CA21 PO
[2021-07-24 13:47] VITALS: BP 151/106
[2021-07-24] MEDS ORDERED: HYDROcodone/acetaminophen 10/325mg tab PO ONE (15:30)
== END 2021-07-24 16:09 | disposition home or self-care (01) ==
LOC: ER 13:38
DX: M54.42 Lumbago with sciatica, left side (principal); G89.29 Other chronic pain; M25.552 Pain in left hip; E78.00 Pure hypercholesterolemia, unspecified; I10 Essential (primary) hypertension; J44.9 Chronic obstructive pulmonary disease, unspecified; E11.9 Type 2 diabetes mellitus without complications; Z86.73 Personal history of transient ischemic attack (TIA), and cerebral infarction without residual deficits; Z90.49 Acquired absence of other specified parts of digestive tract; Z88.0 Allergy status to penicillin; Z88.8 Allergy status to other drugs, medicaments and biological substances; Z79.82 Long term (current) use of aspirin; Z79.899 Other long term (current) drug therapy
CPT/HCPCS: 73502; 99283

== ENCOUNTER 2022-02-14 13:31 | Emergency (ER) | payer MEDICARE, MEDICAID ==
[~2022-02-14] VITALS: Ht 162.6 cm; Wt 135.0 kg
[2022-02-14] MEDS ORDERED: ondansetron/PF 4mg/2ml inj IV ONE (13:55)
[2022-02-14] MEDS ORDERED: normal saline 1000ML IV soln IVB ONE (13:55)
[2022-02-14] MEDS ORDERED: morphine 4 MG/ML inj SYRINge IV ONE (13:55)
[2022-02-14 14:27] LABS: BASOPHILS # (AUTO) 0.1 X10'3 (0-0.2); BASOPHILS % (AUTO) 1.3 % (0-1); EOSINOPHILS # (AUTO) 0.2 X10'3 (0-0.9); MEAN PLATELET VOLUME 8.9 FL (7.4-10.4); RED CELL DISTRIBUTION WIDTH 13.1 % (11.5-14.5); WHITE BLOOD COUNT 10.8 X10'3 (4.5-11.0)
[2022-02-14 14:29] LABS: EOSINOPHILS % (AUTO) 2.1 % (0-6); HEMOGLOBIN 14.8 g/dl (12.0-16.0); LYMPHOCYTES # (AUTO) 4.4 X10'3 (1.1-4.8); LYMPHOCYTES % (AUTO) 40.7 % (21-51); MEAN CORPUSCULAR HEMOGLOBIN 30.2 PG (27.0-31.0); MEAN CORPUSCULAR HGB CONC 33.6 g/dL (33.0-36.5); MONOCYTES % (AUTO) 9.4 % (2-12); NEUTROPHILS % (AUTO) 46.5 % (42-75); PLATELET COUNT 276 X10'3 (140-440)
[2022-02-14 14:40] LABS: ALANINE AMINOTRANSFERASE 34 U/L (12-78); ALBUMIN 3.4 G/DL (3.4-5.0); ALBUMIN/GLOBULIN RATIO 0.9 (1.1-1.5); ALKALINE PHOSPHATASE 100 IU/L (46-116); ANION GAP 12 (8-16); ASPARTATE AMINO TRANSFERASE 27 U/L (10-37); BILIRUBIN,TOTAL 0.4 MG/DL (0.1-1.0); BLOOD UREA NITROGEN 8 MG/DL (7-18); BUN/CREATININE RATIO 9.6 (6.6-38.0); CALCIUM 9.1 MG/DL (8.5-10.1); CHLORIDE 103 MMOL/L (99-107); CREATININE 0.83 MG/DL (0.40-0.90); GLUCOSE 114 MG/DL (70-104); POTASSIUM 3.8 MMOL/L (3.5-5.1); SODIUM 138 MMOL/L (135-145); TOTAL CARBON DIOXIDE 23.3 MMOL/L (24-32); TOTAL PROTEIN 7.1 G/DL (6.4-8.2); eGFR 70 ML/MIN
[2022-02-14] MEDS ORDERED: cyclobenzaprine 10mg tablet PO ONE (15:25)
[2022-02-14] MEDS ORDERED: ketorolac trometh. 30mg/ml inj. IV ONE (15:25)
[2022-02-14 17:32] LABS: CLARITY,URINE CLEAR (Clear); COLOR,URINE STRAW (Yellow); GLUCOSE, URINE 250 mg/dl (Neg); KETONES,URINE NEGATIVE (Neg); LEUKOCYTE ESTERASE ,URINE NEGATIVE (Neg); NITRITES, URINE NEGATIVE (Neg); OCCULT BLOOD,URINE NEGATIVE (Neg); PROTEIN,URINE NEGATIVE (Neg); UROBILINOGEN,URINE 0.2 E.U/dL (0.2-1.0)
[2022-02-14 17:34] LABS: UA COLLECTION TYPE CLN CATCH MIDSTREAM
[2022-02-14 17:39] VITALS: BP 120/80
== END 2022-02-14 17:40 | disposition home or self-care (01) ==
LOC: ER 13:32
DX: M25.552 Pain in left hip (principal); M15.9 Polyosteoarthritis, unspecified; E78.00 Pure hypercholesterolemia, unspecified; I10 Essential (primary) hypertension; J45.909 Unspecified asthma, uncomplicated; E11.9 Type 2 diabetes mellitus without complications; G89.29 Other chronic pain; M54.9 Dorsalgia, unspecified; Z88.0 Allergy status to penicillin; Z88.8 Allergy status to other drugs, medicaments and biological substances; Z79.899 Other long term (current) drug therapy; Z79.82 Long term (current) use of aspirin; W19.XXXA Unspecified fall, initial encounter; Y93.89 Activity, other specified; Y92.89 Other specified places as the place of occurrence of the external cause; Y99.8 Other external cause status
CPT/HCPCS: 36415; 73502; 73564; 80053; 81003; 85025; 85610; 86885; 86900; 86901; 96361; 96374; 96375; 99284; J1885; J2270; J2405; J7030

== ENCOUNTER 2022-10-03 17:57 | Emergency (ER) | payer MEDICARE, MEDICAID ==
[~2022-10-03] VITALS: Ht 162.6 cm; Wt 119.0 kg
[~2022-10-03 17:57] MED LIST changes: +ALBU18HF2 PO; -ATOR20TA66 PO; +ATOR40TA71 PO; -ATRNS NS; -DULO-31 PO; +DULO60CA65 PO; +GABA-530 PO; -GLYB5TAB7 PO; -OMEP40CA21 PO
[2022-10-03 18:30] VITALS: BP 119/82
== END 2022-10-03 19:13 | disposition left against medical advice (07) ==
LOC: ER 17:58
DX: M54.9 Dorsalgia, unspecified (principal); M25.552 Pain in left hip; Z53.21 Procedure and treatment not carried out due to patient leaving prior to being seen by health care provider
CPT/HCPCS: 99281

== ENCOUNTER 2022-11-12 15:15 | Emergency (ER) | payer MEDICARE, MEDICAID ==
[~2022-11-12] VITALS: Ht 162.6 cm; Wt 113.6 kg
[2022-11-12 15:29] VITALS: TEMP 98.5
[2022-11-12 15:46] LABS: BASOPHILS # (AUTO) 0.1 X10'3 (0-0.2); BASOPHILS % (AUTO) 0.7 % (0-1); EOSINOPHILS # (AUTO) 0.2 X10'3 (0-0.9); EOSINOPHILS % (AUTO) 1.3 % (0-6); HEMATOCRIT 42.5 % (35.0-45.0); HEMOGLOBIN 13.6 g/dl (12.0-16.0); LYMPHOCYTES # (AUTO) 3.5 X10'3 (1.1-4.8); MEAN CORPUSCULAR HEMOGLOBIN 26.2 PG (27.0-31.0); MEAN CORPUSCULAR HGB CONC 31.9 g/dL (33.0-36.5); MEAN CORPUSCULAR VOLUME 81.9 FL (78-98); MEAN PLATELET VOLUME 8.9 FL (7.4-10.4); MONOCYTES # (AUTO) 0.9 X10'3 (0-0.9); NEUTROPHILS # (AUTO) 8.3 X10'3 (1.8-7.7); PLATELET COUNT 271 X10'3 (140-440); RED BLOOD COUNT 5.19 X10'6 (4.20-5.60); RED CELL DISTRIBUTION WIDTH 16.1 % (11.5-14.5); WHITE BLOOD COUNT 12.9 X10'3 (4.5-11.0)
[2022-11-12 16:00] LABS: ALANINE AMINOTRANSFERASE 47 U/L (12-78); ALBUMIN 3.4 G/DL (3.4-5.0); ALBUMIN/GLOBULIN RATIO 0.9 (1.1-1.5); ALKALINE PHOSPHATASE 135 IU/L (46-116); ANION GAP 12 (8-16); ASPARTATE AMINO TRANSFERASE 35 U/L (10-37); BILIRUBIN,TOTAL 0.3 MG/DL (0.1-1.0); BLOOD UREA NITROGEN 6 MG/DL (7-18); BUN/CREATININE RATIO 9.1 (10.0-20.0); CALCIUM 8.9 MG/DL (8.5-10.1); CHLORIDE 103 MMOL/L (99-107); CREATININE 0.66 MG/DL (0.40-0.90); GLUCOSE 112 MG/DL (70-104); POTASSIUM 3.7 MMOL/L (3.5-5.1); SODIUM 137 MMOL/L (135-145); TOTAL CARBON DIOXIDE 22.1 MMOL/L (24-32); TOTAL PROTEIN 7.3 G/DL (6.4-8.2); eCRCL 78 ML/MIN; eGFR > 90 ML/MIN
[2022-11-12 16:08] LABS: PRO BRAIN NATRIURETIC PEPTIDE 163 PG/ML (0-125)
[2022-11-12 16:55] VITALS: BP 147/79; PULSE 87; O2SAT 96
[2022-11-12] MEDS ORDERED: HYDROcodone/acetaminophen 5mg/325mg tablet PO ONE (17:40)
[2022-11-12 17:54] VITALS: RESP 18
== END 2022-11-12 18:11 | disposition home or self-care (01) ==
LOC: ER 15:15
DX: I10 Essential (primary) hypertension (principal); R07.89 Other chest pain; E78.00 Pure hypercholesterolemia, unspecified; J44.9 Chronic obstructive pulmonary disease, unspecified; E11.9 Type 2 diabetes mellitus without complications; Z88.0 Allergy status to penicillin; Z88.8 Allergy status to other drugs, medicaments and biological substances; Z79.82 Long term (current) use of aspirin; Z79.899 Other long term (current) drug therapy; Z90.49 Acquired absence of other specified parts of digestive tract; W19.XXXA Unspecified fall, initial encounter; Y93.89 Activity, other specified; Y92.89 Other specified places as the place of occurrence of the external cause; Y99.8 Other external cause status
CPT/HCPCS: 36415; 71120; 80053; 83880; 84484; 85025; 93005; 99285

== ENCOUNTER 2023-07-21 18:57 | Emergency (ER) | payer MEDICARE, MEDICAID ==
[~2023-07-21] VITALS: Ht 162.6 cm; Wt 118.0 kg
[2023-07-21 19:07] VITALS: RESP 16; TEMP 98.2
[2023-07-21] MEDS ORDERED: SULF1TAB49 PO (20:50)
[2023-07-21] MEDS: TETanus/Pertussis (Acell)/Diphther VAC/PF (Tdap-Adult) 0.5ml syringe IMVAC ONE (21:07)
[2023-07-21 21:26] VITALS: BP 148/57; PULSE 64; O2SAT 98
== END 2023-07-21 21:27 | disposition home or self-care (01) ==
LOC: ER 18:58
DX: L03.116 Cellulitis of left lower limb (principal); E78.00 Pure hypercholesterolemia, unspecified; I10 Essential (primary) hypertension; J44.9 Chronic obstructive pulmonary disease, unspecified; E11.9 Type 2 diabetes mellitus without complications; Z88.0 Allergy status to penicillin; Z88.8 Allergy status to other drugs, medicaments and biological substances; Z79.899 Other long term (current) drug therapy; Z79.82 Long term (current) use of aspirin; Z90.49 Acquired absence of other specified parts of digestive tract
CPT/HCPCS: 82948; 90471; 90715; 99284

== ENCOUNTER 2023-08-25 00:18 | Emergency (ER) | payer MEDICARE, MEDICAID ==
[~2023-08-25] VITALS: Ht 162.6 cm; Wt 115.5 kg
[2023-08-25] MEDS ORDERED: albuterol 2.5 MG/3 ML nebule NEB ONE (01:10)
[2023-08-25] MEDS ORDERED: HYDROcodone/acetaminophen 10/325mg tab PO ONE (01:10)
[2023-08-25] MEDS: methylPREDNISolone sod succ 125mg/2ml vial IV ONE (01:18)
[2023-08-25] MEDS: HYDROcodone/acetaminophen 10/325mg tab PO ONE (01:46)
[2023-08-25] MEDS: ketorolac tromethamine 15mg/ml inj. IM ONE (01:49)
[2023-08-25] MEDS: ketorolac trometh. 30mg/ml inj. IV ONE (01:50)
[2023-08-25] MEDS: ketorolac trometh. 30mg/ml inj. IM ONE (01:52)
[2023-08-25 01:53] LABS: BASOPHILS # (AUTO) 0.1 X10'3 (0-0.2); BASOPHILS % (AUTO) 0.6 % (0-1); EOSINOPHILS # (AUTO) 0.1 X10'3 (0-0.9); HEMATOCRIT 40.7 % (35.0-45.0); HEMOGLOBIN 13.4 g/dl (12.0-16.0); LYMPHOCYTES # (AUTO) 3.3 X10'3 (1.1-4.8); MEAN CORPUSCULAR HEMOGLOBIN 28.3 PG (27.0-31.0); MEAN CORPUSCULAR HGB CONC 32.8 g/dL (33.0-36.5); MEAN CORPUSCULAR VOLUME 86.2 FL (78-98); MEAN PLATELET VOLUME 8.3 FL (7.4-10.4); MONOCYTES % (AUTO) 8.4 % (2-12); NEUTROPHILS # (AUTO) 7.4 X10'3 (1.8-7.7); PLATELET COUNT 309 X10'3 (140-440); RED BLOOD COUNT 4.72 X10'6 (4.20-5.60); RED CELL DISTRIBUTION WIDTH 15.8 % (11.5-14.5); WHITE BLOOD COUNT 11.9 X10'3 (4.5-11.0)
[2023-08-25 02:15] LABS: ALBUMIN 3.1 G/DL (3.4-5.0); ANION GAP 12 (8-16); BLOOD UREA NITROGEN 5 MG/DL (7-18); BUN/CREATININE RATIO 6.9 (10.0-20.0); CHLORIDE 103 MMOL/L (99-107); CREATININE 0.72 MG/DL (0.40-0.90); GLUCOSE 140 MG/DL (70-104); PRO BRAIN NATRIURETIC PEPTIDE 234 PG/ML (0-125); SODIUM 139 MMOL/L (135-145); TOTAL CARBON DIOXIDE 24.4 MMOL/L (24-32); eCRCL 71 ML/MIN; eGFR 82 ML/MIN
[2023-08-25 02:37] LABS: POTASSIUM 2.9 MMOL/L (3.5-5.1)
[2023-08-25] MEDS: potassium Cl 20 mEq SR tablet PO STA (03:08)
[2023-08-25] MEDS ORDERED: NAPR-56 PO (03:24)
[2023-08-25] MEDS ORDERED: LIDO1ADH78 TOP (03:24)
[2023-08-25 03:55] VITALS: BP 148/96; PULSE 98; RESP 18; TEMP 96.8; O2SAT 98
== END 2023-08-25 03:56 | disposition home or self-care (01) ==
LOC: ER 00:19
DX: J44.9 Chronic obstructive pulmonary disease, unspecified (principal); R07.89 Other chest pain
CPT/HCPCS: 36415; 71101; 80048; 83880; 84484; 85025; 93005; 96372; 96374; 99285; A4615; J1885; J2919

== ENCOUNTER 2023-10-07 06:48 | Emergency (ER) | payer MEDICARE, MEDICAID ==
[~2023-10-07] VITALS: Ht 162.6 cm; Wt 120.0 kg
[~2023-10-07 06:48] MED LIST changes: +LIDO1ADH78 TOP
[2023-10-07 07:09] VITALS: TEMP 97.8
[2023-10-07 07:23] VITALS: BP 144/84
[2023-10-07 09:39] VITALS: PULSE 82; RESP 18; O2SAT 98
== END 2023-10-07 08:40 | disposition home or self-care (01) ==
LOC: ER 06:49
DX: S93.401A Sprain of unspecified ligament of right ankle, initial encounter (principal); I63.9 Cerebral infarction, unspecified; G45.9 Transient cerebral ischemic attack, unspecified; I25.10 Atherosclerotic heart disease of native coronary artery without angina pectoris; I48.91 Unspecified atrial fibrillation; E78.00 Pure hypercholesterolemia, unspecified; I10 Essential (primary) hypertension; J45.909 Unspecified asthma, uncomplicated; J44.9 Chronic obstructive pulmonary disease, unspecified; E11.9 Type 2 diabetes mellitus without complications; Z88.0 Allergy status to penicillin; Z88.8 Allergy status to other drugs, medicaments and biological substances; Z79.82 Long term (current) use of aspirin; Z79.899 Other long term (current) drug therapy; Z79.2 Long term (current) use of antibiotics; Z90.49 Acquired absence of other specified parts of digestive tract
CPT/HCPCS: 73610; 99284

== ENCOUNTER 2024-01-18 13:58 | Emergency (ER) | payer MEDICARE, MEDICAID ==
[~2024-01-18] VITALS: Ht 162.6 cm; Wt 115.5 kg
[2024-01-18 14:00] VITALS: BP 165/77; PULSE 88; O2SAT 96
[2024-01-18 15:09] VITALS: RESP 16
[2024-01-18] MEDS: HYDROmorphone 1 mg/ml syringe IM ONE (15:09)
[2024-01-18] MEDS: ondansetron 4mg rapidly disintigrating tab PO ONE (15:10)
[2024-01-18 15:22] VITALS: TEMP 98
== END 2024-01-18 15:27 | disposition home or self-care (01) ==
LOC: ER 13:59
DX: M54.17 Radiculopathy, lumbosacral region (principal); I48.91 Unspecified atrial fibrillation; I25.10 Atherosclerotic heart disease of native coronary artery without angina pectoris; I10 Essential (primary) hypertension; G89.29 Other chronic pain; E78.00 Pure hypercholesterolemia, unspecified; E11.9 Type 2 diabetes mellitus without complications; M51.26 Other intervertebral disc displacement, lumbar region; J44.9 Chronic obstructive pulmonary disease, unspecified; Z88.0 Allergy status to penicillin; Z88.8 Allergy status to other drugs, medicaments and biological substances; Z79.899 Other long term (current) drug therapy; Z79.82 Long term (current) use of aspirin; Z86.73 Personal history of transient ischemic attack (TIA), and cerebral infarction without residual deficits; Z90.49 Acquired absence of other specified parts of digestive tract
CPT/HCPCS: 96372; 99284; J1171

== ENCOUNTER 2024-03-16 10:34 | Emergency (ER) | payer MEDICARE, MEDICAID ==
[~2024-03-16] VITALS: Ht 162.6 cm; Wt 98.5 kg
[2024-03-16 13:17] VITALS: BP 128/84; PULSE 80; RESP 16; TEMP 97.5; O2SAT 98
== END 2024-03-16 13:20 | disposition home or self-care (01) ==
LOC: ER 10:34
DX: M25.531 Pain in right wrist (principal); Z86.73 Personal history of transient ischemic attack (TIA), and cerebral infarction without residual deficits; I48.91 Unspecified atrial fibrillation; I25.10 Atherosclerotic heart disease of native coronary artery without angina pectoris; J44.9 Chronic obstructive pulmonary disease, unspecified; E78.00 Pure hypercholesterolemia, unspecified; E11.9 Type 2 diabetes mellitus without complications; I10 Essential (primary) hypertension; Z88.0 Allergy status to penicillin; Z79.82 Long term (current) use of aspirin; Z88.8 Allergy status to other drugs, medicaments and biological substances; Z90.49 Acquired absence of other specified parts of digestive tract; Z98.890 Other specified postprocedural states
CPT/HCPCS: 29125; 73110; 73130; 99284

== ENCOUNTER 2024-10-21 17:19 | Emergency (ER) | payer MEDICARE, MEDICAID ==
[~2024-10-21] VITALS: Ht 162.6 cm; Wt 99.5 kg
--- NOTE | 2024-10-21 20:47 | RADIOLOGY REPORT ---
EXAM: DI TIB/FIB 2 VWS REASON FOR EXAM: fall LEFT TECHNIQUE: AP and cross-table lateral views of the left tibia and fibula are submitted for review. COMPARISON: DI ANKLE, COMPLETE(3VW MIN) on DOS: 10/07/23, LUMBAR SPINE LIMITED on DOS: 07/08/20 FINDINGS: There is mild demineralization of the bones. There is no acute fracture or dislocation. The re is severe narrowing of the medial compartment of the knee with osteophyte formation. The soft tiss ues are grossly unremarkable. IMPRESSION: No acute fracture or dislocation.
--- NOTE | 2024-10-21 20:48 | RADIOLOGY REPORT ---
EXAM: DI SHOULDER, COMPLETE (MIN 2 VWS) REASON FOR EXAM: fall LEFT TECHNIQUE: Internally and externally rotated AP views and Y-view of the left shoulder are submitted f or review. COMPARISON: None FINDINGS: There is mild demineralization of the bones. There is no acute fracture or dislocation. The soft tissues are unremarkable. IMPRESSION: No acute fracture or dislocation.
--- NOTE | 2024-10-21 20:49 | RADIOLOGY REPORT ---
EXAM: DI HIP UNILATERAL 2 VIEWS REASON FOR EXAM: fall LEFT TECHNIQUE: AP pelvis and AP and frogleg lateral views of the left hip are submitted for review. COMPARISON: HIP UNILATERAL 2 VIEWS on DOS: 02/14/22, HIP UNILATERAL 2 VIEWS on DOS: 07/24/21 FINDINGS: There is no acute fracture or dislocation. There is severe narrowing of the left hip joint space with extensive osteophyte formation. Phleboliths project over the pelvis. There are vascular c alcifications. IMPRESSION: No acute fracture or dislocation. Severe osteoarthritis of the left hip.
--- NOTE | 2024-10-21 21:09 | Physician Documentation ---
History of Present Illness ~ Chief Complaint: Mechanical Fall Stated Complaint: LEFT FOOT PAIN Time Seen by MD: 19:50 Primary Medical Doctor: [facility] RITU MARTE HPI 63-year-old female reportedly fell while reaching for her dog in a car today patient denies head strike on but does have positive blood thinner complaints of left shoulder pain hip and leg pain and left ankle pain. She has a developing ecchymosis secondary to blood thinners Day of Fall: Oct 21, 2024 Tetanus within 5 Years?: No (Didnt ask) Medication Reconciliation Allergies: Coded Allergies: Penicillins (Verified Allergy, Intermediate, HIVES, 10/21/24) pregabalin (Verified Allergy, Unknown, FEET SWELLING, 10/21/24) Scheduled Apixaban (Eliquis), 1 TAB PO Q12H, (Reported) Aspirin (Aspirin EC), 1 TAB PO DAILY, (Reported) Atorvastatin Calcium (Atorvastatin Calcium), 1 TABLET PO DAILY, (Reported) Dapagliflozin Propanediol (Farxiga), 1 TAB PO DAILY, (Reported) Duloxetine HCl (Duloxetine HCl), 90 MG PO BID, (Reported) Gabapentin (Gabapentin), 2 CAP PO QAM, (Reported) Levothyroxine Sodium (Levothyroxine Sodium), 1 TAB PO DAILY, (Reported) Lidocaine (Lidocaine), 1 PATCH TOP DAILY Loratadine (Loratadine), 1 TAB PO DAILY, (Reported) Metformin Hcl* (Glucophage*), 1 TAB PO Q12H, (Reported) Scheduled PRN Albuterol Sulfate (Ventolin Hfa), 2 PUFFS PO Q4H PRN for SOB or wheezing, (Reported) Cyclobenzaprine HCl (Cyclobenzaprine HCl), 10 MG PO TID PRN for MUSCLE SPASM, (Reported) Hydrocodone Bit/Acetaminophen 10/325 MG* ([place] 10/325 MG*), 1 TAB PO DAILY PRN for moderate or severe pain, (Reported) Past Medical History Past Medical History: CVA/TIA/Stroke, Atrial Fibrillation, Coronary Artery Disease, High Cholesterol, Hypertension, Asthma, COPD, Diabetes, Chronic Pain, Chronic Back Pain Past Surgical History: angioplasty, cholecystectomy Alcohol Use: Rarely Drug Use: none Lives with: Spouse Lives In: Home Occupation: employed Physical Exam Vital Signs: Temperature: 97.2, Source: Temporal, Heart Rate: 85, Respiratory Rate: 16, BP: 118/89, Pulse Oximetry: 97, Weight: 99.550 Oxygen Flow Rate: 0 Physical Exam General: Alert, no apparent distress. HEENT: PERRL, EOMI, no injection, moist mucous membranes. Neck: Full range of motion. Respiratory: Lungs clear, no respiratory distress. Chest: No accessory muscle use. Cardiovascular: Regular rate and rhythm, no murmurs. Gastrointestinal: Soft, nontender, nondistended. Bowels sounds present. Extremities: Left leg notable ecchymosis on the lateral aspect ankle has diffuse swelling in the lateral aspect with point tenderness Neurologic: Oriented x4. Psychiatric: Normal mood and affect. Skin: Normal color, warm and dry. No edema, no ecchymosis. Progress Results/Orders Results/Orders Orders - DAVID NOGUERA MASTER PLANNER Hip Unilateral 2 Views (10/21/24 20:20) Shoulder, Complete (Min 2 Vws) (10/21/24 20:20) Tib/Fib (10/21/24 20:20) Ankle, Complete(3vw Min) (10/21/24 21:10) Completed Orders - DAVID NOGUERA MASTER PLANNER Hip Unilateral 2 Views (10/21/24 20:20) Shoulder, Complete (Min 2 Vws) (10/21/24 20:20) Tib/Fib (10/21/24 20:20) Ankle, Complete(3vw Min) (10/21/24 21:10) Vital Signs 10/21/24 10/21/24 10/21/24 18:11 20:35 20:37 Temp 97.2 Pulse 87 85 Resp 16 16 16 B/P (MAP) 129/68 118/89 (99) Pulse Ox 96 97 O2 Flow Rate 0 0 Medical Decision Making Findings This patient has a lateral malleolus fracture on the left side.. We will splint her with a short leg splint and advised her to follow up with ortho. Differential Dx:Considerations: Include: Closed head injury, Cardiac injury, Fracture(s), Intraabdominal injury, Pneumothorax, Cerebral contusion, Pulmonary contusion, Spine injury, Tracheal injury, Urological injury, Vascular injury, Abrasion(s), Contusion(s), Foreign body(s), Hematoma(s), Laceration(s), Encephalopathy, Other Departure Disposition: 01 HOME / SELF CARE / HOMELESS Impression: Primary Impression: Fall Additional Impression: Knee pain Condition: Stable Discharge Instructions: Fall Prevention in the Home, Adult, Rjse-we-Leuf, Abrasion Additional Instructions: You have a small fracture on your left ankle. You will need to follow up with Orthopedics for further evaluation. Please take care to avoid fall risk items see the discharge instructions Referrals: NO PRIMARY CARE PROVIDER (PCP) Signature Scribe Signature: g Attestation: Scribed for David Noguera Communication Coordinator by David Hamm NP . 10/21/24 21:09 DAVID NOGUERA NP Oct 21, 2024 21:09
[2024-10-21 21:31] VITALS: BP 120/86; PULSE 89; RESP 16; TEMP 98.2; O2SAT 96
--- NOTE | 2024-10-21 21:31 | RADIOLOGY REPORT ---
EXAM: DI ANKLE, COMPLETE(3VW MIN) CLINICAL HISTORY: ANKLE PAIN LEFT COMPARISON: DI TIB/FIB 2 VWS on DOS: 10/21/24, DI ANKLE, COMPLETE(3VW MIN) on DOS: 10/07/23, KNEE, COMP 4 VW MIN on DOS: 02/14/22 TECHNIQUE: DI ANKLE, COMPLETE(3VW MIN) Findings/Impression: 3 views of the left ankle. There is no evidence of dislocation, blastic, or lytic lesions. Age-indeterminate fracture of the lat eral malleolus. Correlate with physical exam and point tenderness to assess for acuity. No radiopaque foreign bodies. Small joint effusion with mild soft tissue edema.
== END 2024-10-21 22:15 | disposition home or self-care (01) ==
LOC: ER 17:20
DX: S90.02XA Contusion of left ankle, initial encounter (principal); M25.512 Pain in left shoulder; M25.552 Pain in left hip; M25.562 Pain in left knee; E11.9 Type 2 diabetes mellitus without complications; E78.00 Pure hypercholesterolemia, unspecified; I10 Essential (primary) hypertension; I25.10 Atherosclerotic heart disease of native coronary artery without angina pectoris; I48.91 Unspecified atrial fibrillation; J44.89 Other specified chronic obstructive pulmonary disease; Z86.73 Personal history of transient ischemic attack (TIA), and cerebral infarction without residual deficits; Z88.0 Allergy status to penicillin; Z88.8 Allergy status to other drugs, medicaments and biological substances; Z90.49 Acquired absence of other specified parts of digestive tract; W19.XXXA Unspecified fall, initial encounter; Y93.89 Activity, other specified; Y92.89 Other specified places as the place of occurrence of the external cause; Y99.8 Other external cause status
CPT/HCPCS: 29515; 73030; 73502; 73590; 73610; 99284

== ENCOUNTER 2024-11-23 09:09 | Inpatient (IN) | payer MEDICARE, MEDICAID ==
[2024-11-15 10:52] LABS: MEAN PLATELET VOLUME 9.0 FL (7.4-10.4); PRE OP HEMATOCRIT 44.2 % (35.0-45.0); PRE OP HEMOGLOBIN 14.6 g/dL (12.0-16.0); PRE OP PLATELET COUNT 314 X10'3 (140-440); PRE OP WHITE BLOOD COUNT 11.1 10'3 (4.8-10.8); RED CELL DISTRIBUTION WIDTH 14.1 % (11.5-14.5)
[2024-11-15 11:34] LABS: CREATININE 0.65 MG/DL (0.40-0.90); PRE OP ALT 22 U/L (30-65); PRE OP ANION GAP 14 (8-16); PRE OP AST 21 U/L (10-37); PRE OP BILIRUB, TOTAL 0.3 MG/DL (0.0-1.0); PRE OP GLUCOSE 127 MG/DL (70-104); PRE OP SODIUM 140 MMOL/L (135-145); TOTAL CARBON DIOXIDE 21.7 MMOL/L (24-32); eGFR > 90 ML/MIN
[2024-11-15 11:36] LABS: PRE OP POTASSIUM 3.1 MMOL/L (3.4-5.1)
[~2024-11-23] VITALS: Ht 162.6 cm; Wt 101.4 kg
[2024-11-23] VITALS (22 sets, daily range): BP systolic 98–153; BP diastolic 55–91; PULSE 54–120; RESP 12–22; TEMP 97.1–98.8; O2SAT 96–99
[2024-11-23] MEDS: DOCUMENT DATE & TIME OF BETA-BLOCKER PO ONE (05:30)
[~2024-11-23 09:09] MED LIST changes: -ALBU18HF2 PO; +CLOP75TA34 PO; +DULO30CA52 PO; +LEVO125T PO; -LEVO137T2 PO; -LIDO1ADH78 TOP; -LORA-657 PO; +SOTA80TA; +SOTA80TA46 PO
--- NOTE | 2024-11-23 09:55 | ELECTROCARDIOGRAPH REPORT ---
[facility] Test Date: 2024-11-23 Test Time: 09:52:52 Pat Name: FREYA NG [facility] Patient ID: [facility]-[id number] Room: Gender: F Supervisor Vacuum Metalizing: DANIELLE : 1960 Requested By: STACI LYNN Order Number: [id number] Reading MD: Dr. GEORGE Sutherland Measurements Intervals Independence Rate: 96 P: 58 GA: 182 QRS: 56 QRSD: 79 T: 25 QT: 355 QTc: 449 Interpretive Statements Sinus rhythm Low voltage, precordial leads Electronically Signed On 11-23-2024 13:22:[address] GEORGE Sutherland Please click the below link to view image of tracing.
[2024-11-23] MEDS ORDERED: oxyCODONE IR 5mg (immed. release) tablet PO PRN (10:00)
[2024-11-23] MEDS ORDERED: BUPIVACAINE/MELOXICAM 7 ML VIAL IL ONE (10:08)
[2024-11-23] MEDS: ringers solution, lacted 1,000 ML IV SCH (10:21)
[2024-11-23] MEDS: ceFAZolin 2gm/dext,iso 50mL 50 ML IV ONE (10:21)
[2024-11-23] MEDS: VANCOMYCIN/H2O 1.5g/300mL PB 300 ML IV ONE (10:21)
[2024-11-23] MEDS ORDERED: fentaNYL/PF 50MCG/1 ML 2ML syringe ONE (10:29)
[2024-11-23] MEDS ORDERED: MIDAZolam 1 MG/ML 5ML VIAL ONE (10:29)
[2024-11-23 10:39] LABS: ISTAT ANION GAP 16 (8-12); ISTAT BUN < 3 mg/dL (7-18); ISTAT CL 102 mmol/L (99-107); ISTAT CREATININE 0.6 mg/dL (0.6-1.1); ISTAT GLUCOSE 117 mg/dL (70-104); ISTAT HGB 15.6 g/dl (12.0-16.0); ISTAT Hct 46 %PCV (35-45); ISTAT IONIZED CALCIUM 1.29 mmol/L (1.03-1.32); ISTAT K 3.6 mmol/L (3.5-5.1); ISTAT NA 140 mmol/L (135-145); ISTAT TOTAL CO2 22 mmol/L (24-32); ISTAT eGFR > 90 ML/MIN; POC BUN/CREATININE RATIO 5.0 (6.6-38.0)
[2024-11-23] MEDS ORDERED: meperidine/PF 25mg/ml syringe IV PRN ×6 (10:55→13:10)
[2024-11-23] MEDS ORDERED: enalaprilat 1.25mg/ml 2ml vial IV PRN ×2 (10:55→13:10)
[2024-11-23] MEDS ORDERED: labetalol 20mg/4ml (5mg/ml) syringe IV PRN ×2 (10:55→13:10)
[2024-11-23] MEDS ORDERED: ringers solution, lacted 1,000 ML IV SCH ×2 (10:55→13:10)
[2024-11-23] MEDS ORDERED: ondansetron/PF 4mg/2ml inj IV PRN ×3 (10:55→13:10)
[2024-11-23] MEDS ORDERED: morphine 4 MG/ML inj SYRINge IV PRN ×2 (10:55→13:10)
[2024-11-23] MEDS: potassium cl 20mEq in 1/2 NS 1,000 ML IV SCH (11:50)
[2024-11-23] MEDS ORDERED: magnesium hydroxide 30ml (MOM) UD suspension PO PRN (11:50)
[2024-11-23] MEDS ORDERED: PCA WASTE DOCUMENTATION 1 MG ML MC SCH (11:50)
[2024-11-23] MEDS ORDERED: bisacodyl 10mg suppository rectal RC PRN (11:50)
[2024-11-23] MEDS ORDERED: BUPIVAcaine/PF 7.5mg/ml (0.75%) 10ml vial ONE (11:54)
[2024-11-23] MEDS ORDERED: propofol inj 20 ML IV ONE (11:54)
[2024-11-23] MEDS ORDERED: ROPIVAcaine 0.5% (5mg/ml) 30ml vial ONE (11:54)
[2024-11-23] MEDS ORDERED: LIDOcaine 1%/PF 5ML 10 MG/ML VIAL ONE (11:54)
[2024-11-23] MEDS ORDERED: BUPIVACAINE/MELOXICAM 14 ML VIAL IL ONE (12:25)
[2024-11-23] MEDS: BUPIVACAINE/MELOXICAM 14 ML VIAL IL ONE (12:37)
--- NOTE | 2024-11-23 13:11 | ANESTHESIA RECORDS ---
Nerve Block Providers to CC ~ Diagnosis: Nerve Block requested by: STACI LYNN MD Neuraxial/Peripheral Nerve Block requested for Post-operative analgesia by Physician above DIAGNOSIS: Post-operative pain. (Body Area) Shoulder: [ ] Arm: [ ] Hand: [ ] Hip: [ ] Knee: [ Left ] Ankle: [ ] Foot: [ ] Leg: [ ] Abdomen: [ ] Other: [ ] Post-operative pain expected to be/is inadequately managed by oral or IV medicines. Regional anesthetic expected to facilitate rehabilitation and/or discharge from facility. Other:[ ] Procedure Performed: Femoral / Saphenous: Left Other: Left Ipack Block Time out Done?: Yes Time of Time out: 13:25 Procedure Details: PROCEDURE DETAILS: Risks, benefits and alternatives explained Informed consent obtained, and patient wishes to proceed Conscious sedation with indicated monitors Patient positioned, pertinent anatomy defined, sterile technique used Needle used: [ ] 3 1/8 inch Stimuplex Ultra 22ga [x ] 4 inch Stimuplex Ultra 20ga [ ] 6 inch Stimuplex Ultra 20ga [ ] 6 inch, Quikbloc over the needle catheter set 20ga [ ] 4 inch Quikbloc over the needle catheter set 20ga [ ]Other: [ ] Loss of twitch @ [___N/A ]mA [ ] Single Injection [ ] Catheter Ultrasound Guidance Used: [x ] Yes [ ] No Attempts:[ once ] Medicines injected: [ x ]Clonidine Amt:[ 70 mcgs ] [x ]Dexamethasone Amt:[____4 mgs ] [x ]Ropivacaine Amt:[____0.5% 25 cc ] [ x ]Bupivacaine Amt:[ 0.3% 16 cc ] [ ]Lidocaine Amt:[ ] [ ]Exparel 1.33%:[ ] [ ]Epinephrine Amt[ ] [ ]Other: [ ] Intermittent aspiration during local anesthetic administration No symptoms of intraneural or intravenous injection Patient tolerated procedure well Comments Lt Adductor Canal blk Procedure done after surgery under Spinal anesthesia. Pt supine with Lt leg rotated to Lt slightly. Easy visualization of Adductor Canal with ultra sound anterolateral to Femoral artery at the junction of upper and middle third of thigh. Able to see the tip of the needle and injected local anesthetic with the ultrasound. 5 cc of local anesthetic is injected into nerve to Vastus medialis and few cc is injected into ant femoral cutaneous nerves. No Pain or discomfort during injection. Lt IPACK Block: (Infiltration Between Popliteal Artery and Capsule of the Knee). Knee is flexed with the patient in supine position. Using a curvilinear probe placed under the knee, Popliteal vessels are identified. Block needle is inserted from Medial part of the knee about the Patellar level in between popliteal vessels and femoral condyles (capsule of knee) and 20 ml of local anesthetic solution is infiltrated in the space. TIARA PANG MD Nov 23, 2024 13:11
--- NOTE | 2024-11-23 13:37 | OPERATIVE REPORT ---
Operative Report Operative Report OPERATIVE REPORT [facility] [address] [place] [address] Date of service: November 23, 2024 PREOPERATIVE DIAGNOSIS M17..96 Unilateral primary osteoarthritis, left knee POSTOPERATIVE DIAGNOSIS M17. Unilateral primary osteoarthritis, left knee Operation Performed 39768 Total Knee [place]: [place] [address] Computer Assisted Navigation Musculoskeletal - Imageless Procedure: Computer-assisted, robotically-assisted, left total knee arthroplasty. Surgeon: Dr. Dewey Frye Accounts Receivable Accountant: Jimena Bui PA-C Anesthesiologist: Dr. Ribeiro Anesthesia: Spinal anesthetic Indications: 63-year-old female who has chronic osteoarthritis of the left knee with severe pain and limitation of activities despite extensive non-operative management. This patient has had extensive conservative treatment of knee joint arthritis, including rest, external joint support, anti-inflammatory medications , physical therapy, and corticosteroid injection. Physical therapy has been provided, along with a home exercise program prior to making the decision to proceed with surgical treatment. This therapeutic intervention did not provide any substantial relief of symptoms or improvement in function. The patient has been utilizing a cane, set of crutches, or walker, for more than 3 months prior to deciding to proceed with surgery. These interventions have not provided sufficient relief of pain to allow improvement in function. The patient has utilized non-steroidal anti-inflammatory medications for relief of pain over an extended period of time (more than 2 months), and has not experienced sufficient improvement in symptoms. Despite these treatments, this patient has continued difficulties with pain and limited function. They are unable to walk long distances, do vigorous activities, sit or sleep comfortably. Total knee replacement is the next reasonable step in terms of treatment. Indications for fire assistant surgeon: A second set of skilled hands with specific orthopedic knowledge of the surgical procedure and orthopedic surgical techniques was necessary to accomplish this operation successfully, and with the least amount of morbidity for the patient. This facilitated operative exposure, manipulation and handling of tissues, placement of any implants, and accomplishment of wound closure. Findings: There was indeed a very severely arthritic knee, with loss of cartilage, exposed bone, and marginal osteophytes. The medial compartment was particularly bad. A 1 degree varus deformity and 7 degree extension deformity were measured preoperatively. Post operative alignment was 0 varus, and 1 degree extension. Complications: None Estimated Blood Loss: 150 mL Implants: A Shankar Persona CR total knee system was utilized with a size six left cemented femoral component, and a size D left cemented tibial smart stem. A 10 mm medial congruent left tibial insert was utilized. The Treatful robotically assisted total knee arthroplasty system and computer was utilized. Procedure: The risks, benefits, expected results, and possible complications of the planned procedure had been explained to the patient and informed consent obtained. The patient was taken to the operating room and underwent a spinal anesthetic. The patient was placed in the supine position on the operating table, and the left leg was prepped and draped in the usual fashion. A timeout was taken prior to surgery, confirming patient identification, operative side op erative site, planned procedure, administration of pre-operative antibiotics, site marking, and presence of all necessary implants and instruments, x-rays and equipment. A standard anterior, slightly medial approach was performed with a medial parapatellar arthrotomy, and a VMO split. Time was then spent removing excessive synovial tissue and exposing the medial and lateral gutters, as well as moving the anterior sections of the residual menisci. The patella was mobilized to be able to be retracted laterally. This gave exposure of the anterior aspect of the knee. Attention was then directed to the patella. The patella was in excellent condition so we decided not to resurface the patella. Infrared arrays were then placed on the femur and the tibia. Utilizing the Treatful computer system, the hip, knee, and ankle were landmarked in usual fashion. The initial alignment measurements were then taken confirming the above listed deformity. Surgical planning was then carried out on the computer, confirming alignment of components, sizing, and gap balancing. Appropriate soft tissue releases were performed. The robot was then utilized to make the distal femoral cut. The femur was prepared in 4 degrees of flexion and neutral coronal alignment. The distal femoral 4 in 1 block was placed with the robot, and the remaining femoral cuts also performed. The robot was then utilized to cut the proximal tibia in 5 degrees of flexion and neutral coronal alignment. The computer was then utilized to check longitudinal alignment and soft tissue balance, and this confirmed excellent alignment. Next the dynamic balancing block was utilized to check and adjust soft tissue balancing. The trial implant was sized and properly rotated, and the peg drilling performed. Final check of alignment and balancing was then carried out with trials in place, as well as final removal and cleaning up of soft tissue such as meniscal remnants and osteophytes. A tourniquet was inflated to 300 mmHg after exsanguination of the leg with an Esmarch. Cement was then mixed; 2 batches were utilized, mixed together, for the tibia, the femur and the patella. The cut surface of the tibia was thoroughly lavaged with the pulsating lavage and then dried. The tibia was impacted with the mallet, seating it quite nicely in its proper rotational alignment. Excess cement was removed from around the margins. The femoral cuts were cleaned with a pulsating lavage and then dried with the lap sponges, and the femur was impacted into position with a mallet. Excess cement was removed around the margins of the components as the cement cured. Pressure was held on the femoral component and tibia by placing a spacer and bringing the leg to full extension and applying axial and hyperextension force. Upon complete hardening of all cement, the knee was inspected and excess cement removed. We lavaged the knee to wash out any debris and checked to make sure we had no impinging cement. The trial spacer was replaced and overall alignment checked with computer, ensuring we had full extension of the knee, and appropriate medial and lateral soft tissue balance, as well as flexion and extension balance. The tourniquet was deflated and hemostasis obtained with electrocautery. Tourniquet time was 12 minutes. The wound was irrigated thorou ghly one more time and then dried with lap sponges. The final tibial spacer was impacted and locked into the locking mechanism without difficulty. I lavaged the knee to wash out any debris. The tibial trial spacer was replaced and overall alignment checked with computer, ensuring we had full extension of the knee, and appropriate medial and lateral soft tissue balance, as well as f lexion and extension balance. The wound was irrigated thoroughly one more time and then dried with lap sponges. The final tibial spacer was impacted and locked into the locking mechanism without difficulty. The retinacular incision was closed with #2 Quill suture, and subcutaneous tissue closed with #2-0 Vicryl suture. Skin was closed with 4-0 Monocryl suture. A sterile dressing was applied, and the patient was returned to the recovery room in satisfactory condition. Electronically Signed by: Dewey Frye MD Doctor, Orthopedic Surgery Signed on: 11/23/2024 01:36 PM DEWEY FRYE MD Nov 23, 2024 13:37
[2024-11-23] MEDS ORDERED: albumin (Human) 5% 250ml 250 ML IV ONE (13:43)
[2024-11-23] MEDS: ceFAZolin/D5W- 1GM premix 50 ML IV SCH (20:39)
[2024-11-23] MEDS ORDERED: HYDROcodone/acetaminophen 10/325mg tab PO PRN (22:45)
[2024-11-24] MEDS: vancomycin/NS 1 GM ADD-VANTAGE 250 ML IV SCH (00:21)
[2024-11-24 04:00] VITALS: BP 157/86; PULSE 85; RESP 18; TEMP 98.2; O2SAT 95
[2024-11-24] MEDS: HYDROcodone/acetaminophen 10/325mg tab PO PRN (05:49)
[2024-11-24 06:00] VITALS: BP 157/86; PULSE 96; RESP 16; TEMP 98.2; O2SAT 98
[2024-11-24 06:07] LABS: MEAN PLATELET VOLUME 9.3 FL (7.4-10.4); RED CELL DISTRIBUTION WIDTH 14.2 % (11.5-14.5)
[2024-11-24 06:37] LABS: TOTAL CARBON DIOXIDE 21.6 MMOL/L (24-32)
--- NOTE | 2024-11-24 07:31 | DISCHARGE SUMMARY ---
Discharge Summary Ortho CC ~ Discharge Summary *Problems/Diagnosis: (1) S/P total knee arthroplasty Status: Acute Admission Diagnosis: Osteoarthritis Discharge Diagnosis\Comment: see above Operations\Procedures see above Consultants: none Complications: none Condition on DC: Stable Discharge Summary: Patient underwent surgery listed above on date of admission. Surgery went well and without complication. Overnight admission was uneventful and patient is stable. Patient has been cleared by physical therapy and is safe for discharge home. Total Time Spent on D/C: Up to 30 Minutes Medications Home Meds: Home Medications Active Reported Clopidogrel (Clopidogrel Bisulfate) 75 Mg Tablet 1 Tab PO DAILY Sotalol (Sotalol HCl) 80 Mg Tablet 2 Tab PO HS Sotalol (Sotalol Hcl) 80 Mg Tablet 1 Tab QAM Synthroid (Levothyroxine Sodium) 125 Mcg Tablet 1 Tab PO DAILY Duloxetine HCl 30 Mg Capsule.dr 1 Cap PO BID Atorvastatin Calcium 40 Mg Tablet 1 Tablet PO HS Duloxetine HCl 60 Mg Capsule.dr 60 Mg PO HS TAKE WITH 30MG FOR TOTAL 90MG Gabapentin 100 Mg Capsule 1 Cap PO BID PRN Eliquis (Apixaban) 5 Mg Tablet 1 Tab PO Q12H Glucophage* (Metformin HCl) 500 Mg Tablet 1 Tab PO Q12H Farxiga (Dapagliflozin Propanediol) 10 Mg Tablet 1 Tab PO HS Aspirin EC (Aspirin) 81 Mg Tablet.dr 1 Tab PO DAILY [place] 10/325 MG* (Acetaminophen/Hydrocodone Bitart) 10 Mg/325 Mg Tablet 1 Tab PO BID PRN Cyclobenzaprine HCl 10 Mg Tablet 1 Tab PO TID PRN Supervising Physician Supervising Physician: Dr. Dewey Frye Problem Qualifiers (1) S/P total knee arthroplasty: Qualified Codes: Z96.652 - Presence of left artificial knee joint MARIELLA LEMON PAC Nov 24, 2024 07:31
== END 2024-11-24 09:45 | disposition home or self-care (01) | DRG 470 ==
LOC: PAS 09:09 → PAS IN 14:11 → ORTHO 4S 15:15
PROVIDERS: ADMIT Orthopaedic Surgery; ATTEND Orthopaedic Surgery
PROC: 8E0YXBZ Computer Assisted Procedure of Lower Extremity (ICD-10-PCS; 2024-11-23)
PROC: 8E0Y0CZ Robotic Assisted Procedure of Lower Extremity, Open Approach (ICD-10-PCS; 2024-11-23)
PROC: 3E013BZ Introduction of Anesthetic Agent into Subcutaneous Tissue, Percutaneous Approach (ICD-10-PCS; 2024-11-23)
PROC: 0SRD0J9 Replacement of Left Knee Joint with Synthetic Substitute, Cemented, Open Approach (ICD-10-PCS; principal; 2024-11-23 11:12)
DX: M17.12 Unilateral primary osteoarthritis, left knee (principal); Z79.01 Long term (current) use of anticoagulants; Z79.899 Other long term (current) drug therapy
CPT/HCPCS: 36415; 80047; 80051; 80053; 82948; 84443; 85025; 87081; 93005; 97110; 97116; 97161; 97530; A4215; A6449; A7000; C1713; C1776; C9088; G0378; J0131; J0690; J1100; J2250; J2405; J2704; J2710; J2795; J3010; J3373; J3375; J3480; J3490; J7120; P9045

== ENCOUNTER 2025-01-09 12:03 | Observation (INO) | payer MEDICARE, MEDICAID ==
[~2025-01-09] VITALS: Ht 162.6 cm; Wt 101.4 kg
[~2025-01-09 12:03] MED LIST changes: +CEFA2FRO IV
[2025-01-09] MEDS ORDERED: ceFAZolin 1gm IM kit IM ONE (15:00)
[2025-01-09] MEDS: CEFAZOLIN 2 GM IV ONE (15:22)
[2025-01-09] MEDS: ceFAZolin 2gm/dext,iso 50mL 50 ML IV ONE (15:23)
[2025-01-09] MEDS ORDERED: CEFAZOLIN 2 GM IM ONE (15:25)
--- NOTE | 2025-01-09 15:25 | Physician Documentation ---
History of Present Illness General Chief Complaint: See Chief Complaint Stated Complaint: SEE CHIEF COMPLAINT Time Seen by MD: 14:07 Primary Medical Doctor: [facility] RITU MARTE History of Present Illness Initial Comments 64-year-old female presents to the emergency department for evaluation of the PICC line. She is receiving IV antibiotics cefazolin 2 g q.8 hours for left knee arthroplasty with postsurgical infection. Patient reports her Cat ate the end of the PICC line. Last dose was 5:00 a.m. this morning. Patient is under the care of orthopedist Dr. Frye. Patient will surgery was 11/23/2024 with washout on 12/13 requiring hospitalization. Presents without fever, cough or change in pain characteristics. Medication Reconciliation Allergies: Coded Allergies: Penicillins (Verified Allergy, Intermediate, HIVES, BREATHING SHORTNESS, 12/12/24) TOLERATED ANCEF 11/2024 pregabalin (Verified Allergy, Unknown, FEET SWELLING, 10/21/24) Scheduled Apixaban (Eliquis), 1 TAB PO Q12H, (Reported) Aspirin (Aspirin EC), 1 TAB PO DAILY, (Reported) Atorvastatin Calcium (Atorvastatin Calcium), 1 TABLET PO HS, (Reported) Cefazolin Sodium/Dextrose,Iso (Cefazolin-Dextrose 2 gm/100 ml), 2 GM IV Q8H Clopidogrel Bisulfate (Clopidogrel), 1 TAB PO DAILY, (Reported) Dapagliflozin Propanediol (Farxiga), 1 TAB PO HS, (Reported) Duloxetine HCl (Duloxetine HCl), 60 MG PO HS, (Reported) Duloxetine HCl (Duloxetine HCl), 1 CAP PO BID, (Reported) Levothyroxine Sodium (Synthroid), 1 TAB PO DAILY, (Reported) Metformin Hcl* (Glucophage*), 1 TAB PO Q12H, (Reported) Sotalol HCl (Sotalol), 2 TAB PO HS, (Reported) Sotalol Hcl (Sotalol), 1 TAB QAM, (Reported) Scheduled PRN Cyclobenzaprine HCl (Cyclobenzaprine HCl), 1 TAB PO TID PRN for MUSCLE SPASM, (Reported) Gabapentin (Gabapentin), 1 CAP PO BID PRN for pain, (Reported) Hydrocodone Bit/Acetaminophen 10/325 MG* ([place] 10/325 MG*), 1 TAB PO BID PRN for moderate or severe pain, (Reported) Past Medical History Past Medical History: CVA/TIA/Stroke, Atrial Fibrillation, Coronary Artery Disease, High Cholesterol, Hypertension, Asthma, COPD, Diabetes, Chronic Pain, Chronic Back Pain Past Surgical History: angioplasty, cholecystectomy Smoking: Cigarettes Alcohol Use: Rarely Drug Use: none Lives with: Spouse Lives In: Home Occupation: employed Review of Systems Constitutional: Denies: fever, chills, diaphoresis RESP: Denies: short of breath, cough Musc: Reports: pain; Denies: joint pain, joint swelling Physical Exam Physical Exam Vital Signs: RN Vital Signs have been reviewed: Yes, Temperature: 98.5, Source: Oral, Heart Rate: 101, Respiratory Rate: 16, BP: 143/85, Pulse Oximetry: 99, Weight: 101.700 Oxygen Flow Rate: 0 General Appearance: alert, WD/WN, no apparent distress Head: normal inspection Face: normal inspection Pupils/EOM/Fundus: PERRLA Respiratory: no respiratory distress Chest: no accessory muscle use Cardiovascular: normal peripheral pulses Extremities: other (Well healing scar to the left knee without obvious joint effusion or ecchymosis. Range of motion unrestricted) Neurologic: oriented x4 Psychiatric: normal mood/affect Skin: normal color Progress Results/Orders Results/Orders Orders - WADE VIDAL 75g Carb Controlled (01/09/25 Dinner) Page Hospitalist (01/09/25 15:31) Fill Out Med Reconciliation (01/09/25 15:31) Completed Orders - WADE VIDAL PAC Cefazolin 2gm Injection (Cefazolin 2gm (01/09/25 14:50) Cefazolin 2gm/Dext,Iso 50ml (Cefazolin 2 (01/09/25 15:00) Cefazolin Im Kit (Er Only) (Ancef Im Kit (01/09/25 15:30) CMP (01/09/25 15:27) Cbc/Diff (01/09/25 15:27) C-Reactive Protein (01/09/25 15:27) Hydrocodone/Apap 10/325 ([place] 10/325mg (01/09/25 15:30) Hydrocodone/Apap 10/325 ([place] 10/325mg (01/09/25 15:40) Medications Received in ER Medications (Trade) Dose Ordered Sig/Adeline Route PRN Reason Start Time Stop Time Status Last Admin Dose Admin (Ancef IM kit (ER only)) 2 gm ONCE ONCE IM 01/09/25 15:30 01/09/25 15:31 DC 01/09/25 15:45 2 GM ([place] 10/325mg tab) 1 tab ONCE ONCE PO 01/09/25 15:30 01/09/25 15:37 DC 01/09/25 15:45 1 TAB (Maalox oral suspension) 30 ml Q4H PRN PO indigestion/dyspepsia 01/09/25 16:30 01/09/25 16:40 30 ML Vital Signs 01/09/25 01/09/25 01/09/25 01/09/25 12:04 15:00 15:25 15:45 Temp 98.5 Pulse 101 100 Resp 16 18 18 18 B/P (MAP) 143/85 148/100 (116) Pulse Ox 99 98 O2 Flow Rate 0 0 Laboratory Tests Test 01/09/25 15:14 01/09/25 16:28 Sodium Level 138 Potassium Level 4.1 Chloride Level 102 Carbon Dioxide Level 28.7 Anion Gap 7 L Blood Urea Nitrogen 7 Creatinine 0.74 Estimated GFR/1.73 m2 79 BUN/Creatinine Ratio 9.5 L Glucose Level 100 Calcium Level 9.2 Total Bilirubin 0.2 Aspartate Amino Transf (AST/SGOT) 21 Alanine Aminotransferase (ALT/SGPT) 10 L Alkaline Phosphatase 92 C-Reactive Protein < 0.05 Total Protein 7.4 Albumin 3.4 Globulin 4.0 Albumin/Globulin Ratio 0.9 L Chemistry Comments White Blood Count 8.0 Red Blood Count 4.52 Hemoglobin 13.5 Hematocrit 40.3 Mean Corpuscular Volume 89.3 Mean Corpuscular Hemoglobin 29.9 Mean Corpuscular Hemoglobin Concent 33.5 Red Cell Distribution Width 14.6 H Platelet Count 256 Mean Platelet Volume 8.3 Neutrophils (%) (Auto) 39.4 L Lymphocytes (%) (Auto) 48.8 Monocytes (%) (Auto) 7.9 Eosinophils (%) (Auto) 2.7 Basophils (%) (Auto) 1.2 H Neutrophils # (Auto) 3.1 Lymphocytes # (Auto) 3.9 Monocytes # (Auto) 0.6 Eosinophils # (Auto) 0.2 Basophils # (Auto) 0.1 CBC Comment Medical Decision Making Additional information obtaine: old records Findings 64-year-old female requiring admission to the hospital for PICC line placement and continued IV antibiotics for postsurgical infection of the left knee. Screening labs obtained. Patient pending hospitalist evaluation. Differential Diagnosis 64-year-old female requiring hospitalization for continued antibiotic therapy. Difficulty establishing an ultrasound-guided IV in the emergency department. We will go ahead and provide cefazolin 2 g IM. Consultation with the hospitalist for admission further management. Screening labs of CBC, CMP and CRP pending. Patient resting comfortably requesting p.o. pain management. No clinical suspicion for acute septic knee, acute trauma or infection. Departure Disposition: ADMITTED INPATIENT Admitted to Inpatient Unit: to hospitalist Admission Level of Care: Med/Surg Impression: Primary Impression: Left knee postsurgical infection Additional Impressions: Antibiotic infusion History of arthroplasty of left knee Referrals: NO PRIMARY CARE PROVIDER (PCP) Signature Scribe Signature: . Attestation: . WADE VIDAL PAC Jan 09, 2025 15:25
[2025-01-09] MEDS: HYDROcodone/acetaminophen 10/325mg tab PO ONE ×2 (15:39→15:45)
[2025-01-09] MEDS: ceFAZolin 1gm IM kit IM ONE (15:45)
[2025-01-09 16:14] LABS: CREATININE 0.74 MG/DL (0.40-0.90); TOTAL CARBON DIOXIDE 28.7 MMOL/L (24-32); eCRCL 67 ML/MIN; eGFR 79 ML/MIN
[2025-01-09] MEDS ORDERED: magnesium sulf-water 2g/50mL 50 ML IV PRN (16:30)
[2025-01-09] MEDS ORDERED: magnesium Cl slow-release 64mg tablet PO PRN (16:30)
[2025-01-09] MEDS ORDERED: magnesium hydroxide 30ml (MOM) UD suspension PO PRN (16:30)
[2025-01-09] MEDS ORDERED: magnesium sulf-water 4G/100mL 100 ML IV PRN (16:30)
[2025-01-09] MEDS ORDERED: morphine 4 MG/ML inj SYRINge IV PRN (16:30)
[2025-01-09] MEDS ORDERED: potassium Cl 40MEQ/1/2NS 520ml 520 ML IV PRN (16:30)
[2025-01-09] MEDS ORDERED: potassium Cl 20 mEq SR tablet PO PRN ×2 (16:30)
[2025-01-09] MEDS ORDERED: ondansetron/PF 4mg/2ml inj IV PRN (16:30)
[2025-01-09 16:38] LABS: MEAN PLATELET VOLUME 8.3 FL (7.4-10.4); RED CELL DISTRIBUTION WIDTH 14.6 % (11.5-14.5)
[2025-01-09] MEDS: mag hydrox/Alum hydrox/simeth 30ml oral suspension PO PRN (16:40)
--- NOTE | 2025-01-09 17:07 | HISTORY AND PHYSICAL-Residence ---
History & Physical Providers to CC Resident Creating Document: KENNY SIDDIQUI, CARMITA ~ History of Present Illness Primary Medical Doctor: [facility] RITU MARTE Reason for Admit\Complaint: Malfunctioning PICC line History of Present Illness Karen oS is a 63-year-old female with past medical history of COPD on 2L supplemental oxygen at nighttime, CHF, HTN, NIDDM, HLD, obesity, CVA with left- sided residual weakness, GIB who presented to the ED after her cat shoulder PICC line. She was receiving cefazolin through her PICC line for sepsis after left TKR. Her symptoms are blood culture from previous admission. No history of fever with chills, nausea/vomiting, chest pain, abdominal pain. PICC line area looks clean, no redness, no discharge, no swelling. Allergies: Coded Allergies: Penicillins (Verified Allergy, Intermediate, HIVES, BREATHING SHORTNESS, 12/12/24) TOLERATED ANCEF 11/2024 pregabalin (Verified Allergy, Unknown, FEET SWELLING, 10/21/24) Home Medications Home Medications Active Cefazolin-Dextrose 2 gm/100 ml (Cefazolin Sodium/Dextrose,Iso) 2 Gram/100 Ml Froz.piggy 2 Gm IV Q8H 10 Days Reported Clopidogrel (Clopidogrel Bisulfate) 75 Mg Tablet 1 Tab PO DAILY Sotalol (Sotalol HCl) 80 Mg Tablet 2 Tab PO HS Sotalol (Sotalol Hcl) 80 Mg Tablet 1 Tab QAM Synthroid (Levothyroxine Sodium) 125 Mcg Tablet 1 Tab PO DAILY Duloxetine HCl 30 Mg Capsule.dr 1 Cap PO BID Atorvastatin Calcium 40 Mg Tablet 1 Tablet PO HS Duloxetine HCl 60 Mg Capsule.dr 60 Mg PO HS TAKE WITH 30MG FOR TOTAL 90MG Gabapentin 100 Mg Capsule 1 Cap PO BID PRN Eliquis (Apixaban) 5 Mg Tablet 1 Tab PO Q12H Glucophage* (Metformin HCl) 500 Mg Tablet 1 Tab PO Q12H Farxiga (Dapagliflozin Propanediol) 10 Mg Tablet 1 Tab PO HS Aspirin EC (Aspirin) 81 Mg Tablet.dr 1 Tab PO DAILY [place] 10/325 MG* (Acetaminophen/Hydrocodone Bitart) 10 Mg/325 Mg Tablet 1 Tab PO BID PRN Cyclobenzaprine HCl 10 Mg Tablet 1 Tab PO TID PRN Past Medical History Past Medical History Chronic diastolic heart failure with ejection fraction of 60%, not in acute exacerbation Hypertension Hyperlipidemia NIDDM Class II obesity CVA with left-sided residual weakness Past Surgical History Surgical History Comment Orthopedic surgeries, left knee TKR in November 2024 Family History Family History: Patient reports no known family medical history. Past Social History Smoking: Cigarettes Alcohol Use: Rarely Drug Use: None Lives with: Spouse Lives In: Home Occupation: employed ROS All Other Systems: Reviewed and Negative Neurological: Reports: left sided weakness Exam Vitals: Vital Signs Date Time Temp Pulse Resp B/P (MAP) Pulse Ox O2 Delivery O2 Flow Rate FiO2 01/09/25 15:45 18 01/09/25 15:25 01/09/25 15:00 100 98 0 01/09/25 12:04 98.5 General: General: Morbidly obese woman lying comfortably in the bed, Alert, awake, oriented, not in acute distress HEENT: PERRLA, no icterus, pallor, lymphadenopathy, carotid bruit Respiratory system: Bilateral vesicular breath sounds heard, no adventitious breath sounds CVS: S1-S2 heard, no murmurs/rubs/gallop GI: Soft, nontender, no organomegaly, no guarding/rigidity, bowel sounds present Neuro: Power of the left upper and lower extremity: 3/5, right upper and lower extremity: 4/5, no sensory deficits, all cranial nerves intact, coordination intact. Extremities: Erythema swelling and pain of the left knee in surgical dressing and binder, surgical drain with minimal output present Skin: Warm and dry Diagnostic Data Last Recorded Lab Results: 01/09/25 1628 01/09/25 1514 Advance Care Planning Advanced Care planning: N/A Additional Plan History of sepsis after left TKR in November 2024 Patient currently not in sepsis Vitals stable, CBC CMP normal Infection well controlled with outpatient IV cefazolin. Patient admitted for new PICC line placement. Receiving IM Ancef until she has a PICC line. Chronic diastolic heart failure with ejection fraction of 60%, not in acute exacerbation Hypertension Hyperlipidemia NIDDM Class II obesity CVA with left-sided residual weakness Continue home medication apixaban 5 mg p.o. q.12h Aspirin 81 mg p.o. daily Atorvastatin 40 mg p.o. daily Cyclobenzaprine 10 mg p.o. t.i.d. Duloxetine 60 mg p.o. HS Duloxetine 30 mg p.o. b.i.d. Gabapentin 100 mg p.o. b.i.d. p.r.n. Synthroid 125 mcg p.o. daily Metformin 500 mg p.o. q.12h Sotalol 80 mg p.o. HS Code status: Full code DVT prophylaxis: Eliquis 5 mg p.o. b.i.d. Analgesia/sedation: Morphine/[place] Line/tube: PIV GI prophylaxis: None Nutrition: 75 g carb controlled PT: Ordered. Prognosis: Guarded Disposition: Admit to surgery, PICC line in a.m. tomorrow, can be discharged tomorrow Kenny Siddiqui MD PGY1, Internal Medicine [facility] Date of Service: Jan 09, 2025 Billing Provider: ISABEL BERNAL MD Common Visit Codes: [id number] INP/OBS CARE (HIGH) KENNY SIDDIQUI, RES Jan 09, 2025 17:07 ISABEL BERNAL MD Jan 12, 2025 14:44
[2025-01-09] MEDS: K and/or MAG REPLACEMENT MC SCH (20:00)
[2025-01-09] MEDS: docusate sod 100mg capsule PO SCH (20:00)
[2025-01-09] MEDS: Dapagliflozin Propanediol (Farxiga) 10 MG TABLET PO SCH (21:00)
[2025-01-09] MEDS: ceFAZolin 1gm IM kit IM SCH (21:07)
[2025-01-09] MEDS: duloxetine 30mg CAPSULE.DR PO SCH ×2 (21:45→21:49)
[2025-01-10] MEDS: HYDROcodone/acetaminophen 5mg/325mg tablet PO PRN (00:01)
[2025-01-10 02:56] LABS: MEAN PLATELET VOLUME 8.2 FL (7.4-10.4); RED CELL DISTRIBUTION WIDTH 14.4 % (11.5-14.5)
[2025-01-10 03:11] LABS: CREATININE 0.63 MG/DL (0.40-0.90); TOTAL CARBON DIOXIDE 29.3 MMOL/L (24-32); eCRCL 79 ML/MIN; eGFR > 90 ML/MIN
[2025-01-10] MEDS: aspirin 81mg, enteric-coated 1 TAB TABLET.DR PO SCH (09:45)
[2025-01-10] MEDS: sotalol HCl 40mg (1/2 tablet) PO SCH (09:48)
[2025-01-10 11:00] VITALS: BP 181/101; PULSE 92; RESP 19; TEMP 97.8; O2SAT 96
[2025-01-10] MEDS ORDERED: CLOP75TA34 PO (12:52)
--- NOTE | 2025-01-10 17:54 | DISCHARGE SUMMARY-Residence ---
Discharge Summary Providers to CC Resident Creating Document: VIVIENNE CATALAN RES ~ Discharge Summary Admission Diagnosis: Infection Hospital Course DATE OF ADMISSION: 01/09/2025 DATE OF DISCHARGE: 01/10/2025 Hospital course same as mentioned discharge summary. Discharge Diagnosis\Comment: Admitted for midline placement secondary to sepsis from possible infected hardware after left TKR in November 2024 Currently patient does not in sepsis or does not meet SIRS criteria Chronic diastolic heart failure with 60% EF not in exacerbation Hypertension Hyperlipidemia Diabetes Obesity CVA with residual left-sided weakness Operations\Procedures: PICC line placement Consultants: None Complications: None Condition on DC: Stable New Medications: Clopidogrel Bisulfate (Clopidogrel) 75 Mg Tablet 75 MG PO DAILY, #30 TAB Do not stop medication unless instructed by prescriber. Continued Medications: Apixaban (Eliquis) 5 Mg Tablet 1 TAB PO Q12H, TAB Aspirin (Aspirin EC) 81 Mg Tablet.dr 1 TAB PO DAILY Atorvastatin Calcium (Atorvastatin Calcium) 40 Mg Tablet 1 TABLET PO HS Cefazolin Sodium/Dextrose,Iso (Cefazolin-Dextrose 2 gm/100 ml) 2 Gram/100 Ml Froz.piggy 2 GM IV Q8H for 10 Days, #30 BOT 0 Refills Cyclobenzaprine HCl (Cyclobenzaprine HCl) 10 Mg Tablet 1 TAB PO TID PRN for MUSCLE SPASM Dapagliflozin Propanediol (Farxiga) 10 Mg Tablet 1 TAB PO HS, TAB Duloxetine HCl (Duloxetine HCl) 30 Mg Capsule. 1 CAP PO BID Gabapentin (Gabapentin) 100 Mg Capsule 1 CAP PO BID PRN for pain Hydrocodone Bit/Acetaminophen 10/325 MG* ([place] 10/325 MG*) 10 Mg/325 Mg Tablet 1 TAB PO BID PRN for moderate or severe pain Levothyroxine Sodium (Synthroid) 125 Mcg Tablet 1 TAB PO DAILY Metformin Hcl* (Glucophage*) 500 Mg Tablet 1 TAB PO Q12H, TAB Sotalol Hcl (Sotalol) 80 Mg Tablet 1 TAB QAM Sotalol HCl (Sotalol) 80 Mg Tablet 2 TAB PO HS, TAB 0 Refills Discontinued Medications: Duloxetine HCl (Duloxetine HCl) 60 Mg Capsule. 60 MG PO HS TAKE WITH 30MG FOR TOTAL 90MG Discharge Summary: As per HPI by the admitting provider: Karen So is a 63-year-old female with past medical history of COPD on 2L supplemental oxygen at nighttime, CHF, HTN, NIDDM, HLD, obesity, CVA with left-sided residual weakness, GIB who presented to the ED after her cat shoulder PICC line. She was receiving cefazolin through her PICC line for sepsis after left TKR. Her symptoms are blood culture from previous admission. No history of fever with chills, nausea/vomiting, chest pain, abdominal pain. PICC line area looks clean, no re dness, no discharge, no swelling. Hospital course: Labs unremarkable. Vitals stable, she has been saturating well on room air. She does not have any new concerns or complaints. Midline line placed by angio team. She is currently on cefazolin 2 g IV q.8h. During her admission she got the medication IM. This morning midline placed per ID recommendations and she will continue IV cefazolin until 01/26/2025. She needs to follow up with ID outpatient basis. She improved significantly and has been cleared for discharge, recovery sooner than expected. Her hospital course is uncomplicated she is hemodynamically stable on the day of discharge. Vital Signs Date Time Temp Pulse Resp B/P (MAP) Pulse Ox O2 Delivery O2 Flow Rate FiO2 01/10/25 11:00 97.8 92 19 181/101 (127) 96 Room Air 01/10/25 06:29 0 Laboratory Tests Test 01/09/25 15:14 01/09/25 16:28 01/10/25 02:34 01/10/25 10:15 Sodium Level 138 MMOL/L 141 MMOL/L Potassium Level 4.1 MMOL/L 4.6 MMOL/L Chloride Level 102 MMOL/L 104 MMOL/L Carbon Dioxide Level 28.7 MMOL/L 29.3 MMOL/L Anion Gap 7 8 Blood Urea Nitrogen 7 MG/DL 7 MG/DL Creatinine 0.74 MG/DL 0.63 MG/DL Estimated GFR/1.73 m2 79 ML/MIN > 90 ML/MIN BUN/Creatinine Ratio 9.5 11.1 Glucose Level 100 MG/DL 110 MG/DL Calcium Level 9.2 MG/DL 8.9 MG/DL Total Bilirubin 0.2 MG/DL 0.2 MG/DL Aspartate Amino Transf (AST/SGOT) 21 U/L 20 U/L Alanine Aminotransferase (ALT/SGPT) 10 U/L 9 U/L Alkaline Phosphatase 92 IU/L 79 IU/L C-Reactive Protein < 0.05 MG/DL < 0.05 MG/DL Total Protein 7.4 G/DL 6.3 G/DL Albumin 3.4 G/DL 2.9 G/DL Globulin 4.0 G/DL 3.4 G/DL Albumin/Globulin Ratio 0.9 0.9 Chemistry Comments White Blood Count 8.0 X10'3 7.6 X10'3 Red Blood Count 4.52 X10'6 4.03 X10'6 Hemoglobin 13.5 g/dl 11.9 g/dl Hematocrit 40.3 % 35.9 % Mean Corpuscular Volume 89.3 FL 89.1 FL Mean Corpuscular Hemoglobin 29.9 PG 29.5 PG Mean Corpuscular Hemoglobin Concent 33.5 g/dL 33.1 g/dL Red Cell Distribution Width 14.6 % 14.4 % Platelet Count 256 X10'3 249 X10'3 Mean Platelet Volume 8.3 FL 8.2 FL Neutrophils (%) (Auto) 39.4 % 44.2 % Lymphocytes (%) (Auto) 48.8 % 42.3 % Monocytes (%) (Auto) 7.9 % 10.4 % Eosinophils (%) (Auto) 2.7 % 2.2 % Basophils (%) (Auto) 1.2 % 0.9 % Neutrophils # (Auto) 3.1 X10'3 3.4 X10'3 Lymphocytes # (Auto) 3.9 X10'3 3.2 X10'3 Monocytes # (Auto) 0.6 X10'3 0.8 X10'3 Eosinophils # (Auto) 0.2 X10'3 0.2 X10'3 Basophils # (Auto) 0.1 X10'3 0.1 X10'3 CBC Comment Magnesium Level 1.5 MG/DL Erythrocyte Sedimentation Rate 10 MM/HR *Problems/Diagnosis: (1) S/P total knee arthroplasty Status: Chronic Total Time Spent on D/C: > 30 Minutes Date of Service: Jan 10, 2025 Billing Provider: ISABEL BERNAL MD Common Visit Codes: 46219-JDS/[id number] DISCH DAY >30min VIVIENNE CATALAN, CARMITA Jan 10, 2025 17:26 ISABEL BERNAL MD Jan 12, 2025 14:48
== END 2025-01-10 13:17 | disposition home or self-care (01) ==
LOC: ER 12:04 → UNDOADMIN 16:31 → ED HOLD 16:31 → SUR 3N 16:31 → ED HOLD 20:42 → SUR 3N 01-10 07:02 → ED HOLD 01-10 07:02
PROVIDERS: ADMIT Internal Medicine; ATTEND Internal Medicine
DX: T80.211A Bloodstream infection due to central venous catheter, initial encounter (principal); I10 Essential (primary) hypertension; I25.10 Atherosclerotic heart disease of native coronary artery without angina pectoris; E11.9 Type 2 diabetes mellitus without complications; E78.00 Pure hypercholesterolemia, unspecified; E78.5 Hyperlipidemia, unspecified; J45.909 Unspecified asthma, uncomplicated; J44.9 Chronic obstructive pulmonary disease, unspecified; G89.29 Other chronic pain; M54.9 Dorsalgia, unspecified; Z86.73 Personal history of transient ischemic attack (TIA), and cerebral infarction without residual deficits; Z79.899 Other long term (current) drug therapy; Z98.890 Other specified postprocedural states
CPT/HCPCS: 36410; 76942; 80053; 83735; 86140; 96372; 99284; C1751; G0378; 36415; 85025; 85651; 87081; 99285; A6258; A6402; J0690